=== PATIENT | female | born 1995 | race Caucasian/White ===

== ENCOUNTER 2016-07-21 17:09 | Outpatient (CLI) | payer OTHER | END 2016-07-21 17:25 | disposition home or self-care (01) | LOC: FBPOP 17:09 | PROVIDERS: ATTEND Obstetrics & Gynecology | DX: O26.92 Pregnancy related conditions, unspecified, second trimester (principal); Z3A.22 22 weeks gestation of pregnancy; R11.2 Nausea with vomiting, unspecified | CPT/HCPCS: 99213 ==

== ENCOUNTER → 2016-09-01 | Outpatient (CLI) | payer OTHER ==
[2016-09-01 14:01] LABS: CH 30.5; CHCM 33.9; HCT 33.1 % (34.0-46.0); HDW 3.22; HGB 11.2 gm/dL (11.4-16.0); MCH 30.7 pg (25.0-35.0); MCV 90.4 fL (80.0-100.0); Mean Platelet Volume 7.2; RBC 3.66 m/uL (3.80-5.40); RDW 13.3 % (11.5-15.5); WBC 14.7 k/uL (3.8-10.6)
== END | disposition home or self-care (01) ==
LOC: LABWHC1 12:44
PROVIDERS: ATTEND Obstetrics & Gynecology
DX: Z34.82 Encounter for supervision of other normal pregnancy, second trimester (principal); Z3A.00 Weeks of gestation of pregnancy not specified
CPT/HCPCS: 36415; 82950; 85027

== ENCOUNTER → 2016-09-22 | Outpatient (CLI) | payer OTHER | END | disposition home or self-care (01) | LOC: LABWHC1 11:23 | PROVIDERS: ATTEND Obstetrics & Gynecology | DX: O26.90 Pregnancy related conditions, unspecified, unspecified trimester (principal); Z3A.00 Weeks of gestation of pregnancy not specified | CPT/HCPCS: 86850 ==

== ENCOUNTER → 2016-09-25 | Outpatient (CLI) | payer OTHER ==
--- NOTE | 2016-09-25 19:01 | US ---
EXAMINATION TYPE: US OB anatomy transabd DATE OF EXAM: 09/25/2016 3:38 PM COMPARISON: US on PACS HISTORY: LGA; TECHNIQUE: Transabdominal (TA) EXAM MEASUREMENTS: GESTATIONAL AGE / DATING Physician Established: (32 weeks/2 days) EDC: 11/18/2016 Dates by LMP: (32 weeks/2 days) EDC: 11/18/2016 Dates by First Scan: (32 weeks/2 days) EDC: 11/18/2016 Dates by Current Scan for: (32 weeks/4 days) EDC: 11/16/2016 SURVEY IUP: Single PLACENTA: Anterior PREVIA: No previa STEPHAN: 17.1 cm Normal CERVICAL LENGTH (transabdominal: norm > 3.0cm): 3.02 cm BIOMETRY PRESENTATION: Vertex LIE: Longitudinal BPD: 7.8 cm 31 weeks / 3 days HC: 29.7 cm 33 weeks / 0 days AC: 28.1 cm 33 weeks / 4 days FL: 6.5 cm 33 weeks / 4 days ESTIMATED WEIGHT IN GRAMS: 1999.0 grams ESTIMATED WEIGHT IN LBS/OZ: 4 lbs. 7 oz. WEIGHT PERCENTAGE BASED ON ESTABLISHED DATE: 48 % HC/AC: 1.06 (normal range 0.96 to 1.17) FL/AC: 23% (normal range 20 to 24%) HEART RATE: 136 bpm RHYTHM: Normal ANATOMY SEEN (within normal limits): Four Chamber Heart Outflow tracts: LVOT Stomach Situs Nose / Lips Diaphragm Kidneys (bilateral) Bladder Cord Insert Three Vessel Cord Longitudinal Spine Transverse Spine ANATOMY NOT SEEN: due to advanced gestation and crowding: * Lateral Vent (< 1 cm) cm * Cisterna Magna (< 1.1 cm) cm * Nuchal Fold (< 0.6 cm) cm * Cerebellum (varies with age) cm Choroid Plexus (bilateral) Midline Falx Cavus Septi Pellucidi RVOT Arms (bilateral) Legs (bilateral) IMPRESSION: 1. Single, live, IUP,32 weeks/4 days, EDC: 11/16/2016, HR 136bpm; Cervix length at 3.02cm. 2. Limited assessment of anatomy due to advanced gestational age.
== END | disposition home or self-care (01) ==
LOC: RADUSWWP 14:35
PROVIDERS: ATTEND Obstetrics & Gynecology
DX: O36.63X0 Maternal care for excessive fetal growth, third trimester, not applicable or unspecified (principal); Z3A.32 32 weeks gestation of pregnancy
CPT/HCPCS: 76811

== ENCOUNTER 2016-11-11 06:00 | Inpatient (IN) | payer OTHER ==
[2016-11-11] MEDS ORDERED: TERBUTALINE 1 MG/ML VIAL SQ PRN (08:08)
[2016-11-11] MEDS ORDERED: LIDOCAINE 1% (PF) 10 MG/ML (30 ML SDV) SQ PRN (08:08)
[2016-11-11] MEDS ORDERED: OXYTOCIN 10 UNIT/ML 1 ML VIAL IM PRN (08:08)
[2016-11-11] MEDS ORDERED: METHYLERGONOVINE 0.2 MG/ML 1 ML AMP IM PRN (08:08)
[2016-11-11] MEDS ORDERED: CARBOPROST TROMETHAMINE 250 MCG/ML 1 ML AMP IM PRN (08:08)
[2016-11-11] MEDS ORDERED: OXYTOCIN 30 UNITS/500 ML NS 30 UNIT in SALINE 1 500ML.BAG IV SCH (08:15)
[2016-11-11] MEDS ORDERED: AMPICILLIN 2,000 MG in SODIUM CHLORIDE 0.9% 100 ML IVPB STA (08:15)
[2016-11-11 08:22] LABS: Basophils % (A) 0 %; CH 27.4; CHCM 33.1; Eosinophils # (A) 0.1 k/uL (0-0.7); Eosinophils % (A) 1 %; HCT 31.9 % (34.0-46.0); HDW 3.55; HGB 10.7 gm/dL (11.4-16.0); Hypochromasia Slight; Luc # (Auto) 0.27; Luc % (Auto) 2; Lymphocytes # (A) 2.5 k/uL (1.0-4.8); Lymphocytes % (A) 21 %; MCHC 33.7 g/dL (31.0-37.0); MCV 83.2 fL (80.0-100.0); Mean Platelet Volume 7.8; Monocytes # (A) 0.8 k/uL (0-1.0); Monocytes % (A) 7 %; Neutrophils # (A) 8.5 k/uL (1.3-7.7); Neutrophils % (A) 69 %; Poikilocytosis Slight; RBC 3.83 m/uL (3.80-5.40); RDW 13.9 % (11.5-15.5); WBC 12.2 k/uL (3.8-10.6); WBC (Perox) 11.77
[2016-11-11 08:23] VITALS: BMI 26.4
[2016-11-11] MEDS: LACTATED RINGERS 1,000 ML IV SCH ×3 (08:27→12:46)
[2016-11-11] MEDS ORDERED: fentaNYL (PF) 50 MCG/ML 5 ML AMP ONE (11:08)
[2016-11-11] MEDS ORDERED: BUPIVACAINE (PF) 0.25% 30 ML VIAL ONE (11:08)
[2016-11-11] MEDS ORDERED: SODIUM CHLORIDE 0.9% 100 ML BAG ONE (11:08)
[2016-11-11] MEDS ORDERED: AMPICILLIN 1,000 MG in SODIUM CHLORIDE 0.9% 50 ML IVPB SCH (12:15)
[2016-11-11] MEDS ORDERED: BUPIVACAINE (PF) 0.25% 25 ML, fentaNYL (PF) 200 MCG in SODIUM CHLORIDE 0.9% 71 ML EPIDURAL ONE (13:54)
[2016-11-11] MEDS ORDERED: diphenhydrAMINE 50 MG CAP PO PRN (16:21)
[2016-11-11] MEDS ORDERED: ZOLPIDEM 5 MG TAB PO PRN (16:21)
[2016-11-11] MEDS ORDERED: Acetaminophen-Codeine 300-30mg TAB PO PRN ×2 (16:21)
[2016-11-11] MEDS ORDERED: HYDROCORTISONE 2.5% RECTAL CREAM 30 GM TUBE RECTAL PRN (16:21)
[2016-11-11] MEDS ORDERED: WITCH HAZEL 1 EACH MED..PAD TOPICAL PRN (16:21)
[2016-11-11] MEDS ORDERED: diphenhydrAMINE 50 MG/ML 1 ML VIAL IVP PRN ×2 (16:21)
[2016-11-11] MEDS ORDERED: SIMETHICONE 80 MG CHEWABLE PO PRN (16:21)
[2016-11-11] MEDS ORDERED: diphenhydrAMINE 25 MG CAP PO PRN (16:21)
[2016-11-11] MEDS ORDERED: BENZOCAINE/MENTHOL SPRAY 1 GM/SPRAY AEROSOL TOPICAL PRN (16:21)
[2016-11-11] MEDS ORDERED: LANOLIN CREAM 5 GM TUBE TOPICAL PRN (16:21)
--- NOTE | 2016-11-11 16:24 | P.HPOB ---
History of Present Illness H&P Date: 11/11/16 Chief Complaint: IUP term Patient is a 21-year-old at 39 weeks gestation arise for induction of labor. Her course has been remarkable for positive GBS status otherwise no significant problems were encountered during the . Pertinent labs did include A- blood type Rh antibody was positive for anxiety but that was resolved [place] and. She did receive Fabio gamma 28 weeks. Rubella was immune hepatitis B surface antigen and RPR were both negative. On physical exam vital signs are stable and afebrile. Heart regular, lungs clear, extremities without pain. Patient was dilated to 2 cm artificial rupture membranes was performed this morning with clear fluid noted. Pitocin augmentation of labor is expected as is an epidural for analgesia. Assessment intrauterine term. Plan expect spontaneous vaginal delivery. Past Medical History Past Medical History: Asthma, GERD/Reflux Additional Past Medical History / Comment(s): vertigo History of Any Multi-Drug Resistant Organisms: None Reported Past Surgical History: No Surgical Hx Reported Additional Past Surgical History / Comment(s): 07-27-2014 had scope done with dr an with inflammation Past Anesthesia/Blood Transfusion Reactions: Motion Sickness Past Psychological History: Anxiety, Depression Smoking Status: Current some day smoker Past Alcohol Use History: None Reported Additional Past Alcohol Use History / Comment(s): STARTED SMOKING MAR 2014 Past Drug Use History: None Reported Additional Drug Use History / Comment(s): MOM STATES USES DAILY. INSTRUCTED MOTHER THAT PT NEEDS TO REFRAIN FROM USE AT LEAST 24 HOURS PRIOR TO PROCEDURE - Past Family History Mother Family Medical History: Asthma, COPD Additional Family Medical History / Comment(s): insomnia, hypoglycemia, severe xdiwoyyci-vbee-diecyk Sister(s) Additional Family Medical History / Comment(s): hypoglycemia Medications and Allergies Home Medications Medication Instructions Recorded Confirmed Type Pnv #78/Iron Asp Gly/FA#1/Dha 1 each PO DAILY 11/11/16 11/11/16 History [Prenate Dha Softgel] Allergies Allergy/AdvReac Type Severity Reaction Status Date / Time venom-honey bee Allergy Anaphylaxis Verified 11/11/16 08:07 [bee venom (honey bee)] codeine AdvReac Nausea & Verified 11/11/16 08:07 Vomiting Exam Osteopathic Statement: *. No significant issues noted on an osteopathic structural exam other than those noted in the History and Physical/Consult. - Vital Signs Vital signs: Vital Signs Temp Pulse Resp BP Pulse Ox 11/11/16 07:44 97.3 F L 83 17 123/70 99 Intake and Output 11/11/16 11/11/16 11/11/16 06:59 14:59 22:59 Intake Total 200 Output Total 300 Balance -100 Intake: Oral 200 Output: Urine 300 Other: Weight 61.235 kg Patient Weight 11/12/16 06:59 Weight 61.235 kg Results Result Diagrams: 11/11/16 08:00 Abnormal Lab Results - Last 24 Hours (Table) 11/11/16 Range/Units 08:00 WBC 12.2 H (3.8-10.6) k/uL Hgb 10.7 L (11.4-16.0) gm/dL Hct 31.9 L (34.0-46.0) % Neutrophils # 8.5 H (1.3-7.7) k/uL
--- NOTE | 2016-11-11 16:25 | P.PROBDLV ---
Vaginal Delivery Note - . Vaginal Delivery Note: Patient progressed complete and pushing with spontaneous vaginal delivery of a viable female over an intact perineum. Falling deliver the head anterior posterior shoulders were delivered with gentle downward and upward traction followed by the remainder the baby. Mouth and nares were then bulb suctioned and baby was placed on mother's abdomen where the umbilical cord was clamped cut usual fashion. Placenta was then delivered intact Pitocin was added to the IV. scores weight are pending but both mother and baby currently appear stable.
[2016-11-11] MEDS: ACETAMINOPHEN TAB 325 MG TAB PO PRN (16:32)
[2016-11-11] MEDS: IBUPROFEN 600 MG TAB PO PRN (21:12)
[2016-11-11] MEDS: SENNOSIDES-DOCUSATE SODIUM 1 EACH TAB PO SCH (22:57)
[2016-11-12] MEDS: IBUPROFEN 600 MG TAB PO PRN ×2 (08:22→20:50)
[2016-11-12] MEDS: SENNOSIDES-DOCUSATE SODIUM 1 EACH TAB PO SCH ×2 (08:23→20:50)
--- NOTE | 2016-11-12 10:34 | P.PNOBGVD ---
Subjective - Subjective Principal diagnosis: day 1 Interval history: Anabella is seen and evaluated day 1. She is sitting in a chair and at this time voices no complaints. She is ambulating, voiding and she is tolerating her diet well. She does report that last night she had some chest pain with deep breaths this has resolved and they believe this may been anxiety as an etiology. Should she have further or return of symptoms, will need to have more workup done including EKG and potentially VQ scan versus CT. However her lungs are clear she is pulse oxing well she is not have any pain with deep inspiration this time and realistically it was not bad enough that they even called me to notify me of this last night. I suspect it is some anxiety issues a very anxious person in general. Heart regular, lungs clear, extremities without pain. Abdomen is soft uterus is firm and lochia is reported to be light. Assessment post day 1. Plan continue current care. Patient reports: Reports appetite normal, Reports voiding normally, Reports pain well controlled, Reports ambulating normally [place]: doing well Objective - Latest Vital Signs Latest vital signs: Vital Signs Temp Pulse Resp BP Pulse Ox 11/12/16 08:00 97.7 F 72 18 109/67 11/12/16 01:00 98.1 F 75 16 113/59 11/11/16 22:00 99.0 F 79 16 105/54 11/11/16 17:47 80 17 95/52 11/11/16 17:17 98.2 F 78 18 101/56 11/11/16 16:47 78 16 110/59 11/11/16 16:32 78 17 109/56 11/11/16 16:17 85 17 105/75 11/11/16 16:02 85 16 108/56 11/11/16 15:47 98.2 F 86 18 103/50 96 Intake and Output 11/11/16 11/12/16 11/12/16 22:59 06:59 14:59 Intake Total 107.25 Output Total 500 Balance -392.75 Intake: Intake, IV Titration 107.25 Amount Oxytocin 30 Units/500 ml 107.25 Ns 30 unit In Saline 1 500ml.bag @ 1 MILLIUNIT/ MIN 1 mls/hr IV .Q24H SHABANA Rx#:[id number] Output: Urine 500 Other: # Voids 1 1 1
[2016-11-12] MEDS: ACETAMINOPHEN TAB 325 MG TAB PO PRN (13:57)
[2016-11-13] MEDS: ACETAMINOPHEN TAB 325 MG TAB PO PRN (00:50)
[2016-11-13] MEDS: IBUPROFEN 600 MG TAB PO PRN (08:51)
--- NOTE | 2016-11-13 09:09 | P.DS ---
Providers Date of admission: 11/11/16 07:36 Expected date of discharge: 11/13/16 Attending physician: Mekhi Gamboa Primary care physician: Stated None Hospital Course: Overall leashes doing very well day 2. She is ambulating, voiding, and she is tolerating her diet. Chest pain she is complaining of yesterday is completely resolved. She does have some back pain but this is likely due to her epidural. She is stable for discharge this time stable vital signs. Prescription for Motrin has been provided as she cannot take Tylenol No. 3. All other questions are answered for her prior to discharge. On physical exam again vital signs are stable. She is afebrile. Heart regular, lungs clear, extremities without pain. Abdomen is soft uterus is firm below the umbilicus and lochia is reported be light. Assessment day 2. Plan discharged home follow up with me in 6 weeks. Patient Condition at Discharge: Good Plan - Discharge Summary New Discharge Prescriptions: Ibuprofen [Motrin] 600 mg PO Q6HR PRN #30 tab PRN Reason: Pain Discharge Medication List Pnv #78/Iron Asp Gly/FA#1/Dha [Prenate Dha Softgel] 1 each PO DAILY 11/11/16 [ History] Ibuprofen [Motrin] 600 mg PO Q6HR PRN #30 tab 11/13/16 [Rx] Follow up Appointment(s)/Referral(s): Mekhi Gamboa DO [Doctor of Osteopathic Medicine] - 6 Weeks Activity/Diet/Wound Care/Special Instructions: No heavy lifting, limit stairs and driving and pelvic rest. If any high temperatures, heavy bleeding, or severe pain call my office Discharge Disposition: HOME SELF-CARE
[2016-11-13 09:32] VITALS: BP 116/62; PULSE 68; RESP 20; TEMP 98.5
[2016-11-13] MEDS: SENNOSIDES-DOCUSATE SODIUM 1 EACH TAB PO SCH (09:34)
== END 2016-11-13 13:30 | disposition home or self-care (01) | DRG 775 ==
LOC: 4FBP 07:36
PROVIDERS: ADMIT Obstetrics & Gynecology; ATTEND Obstetrics & Gynecology
PROC: 10E0XZZ Delivery of Products of Conception, External Approach (ICD-10-PCS; principal; 2016-11-11)
PROC: 00HU33Z Insertion of Infusion Device into Spinal Canal, Percutaneous Approach (ICD-10-PCS; 2016-11-11)
PROC: 3E0R3CZ (ICD-10-PCS; 2016-11-11)
DX: O99.824 Streptococcus B carrier state complicating childbirth (principal); O99.344 Other mental disorders complicating childbirth; F32.9 Major depressive disorder, single episode, unspecified; Z37.0 Single live birth; F17.200 Nicotine dependence, unspecified, uncomplicated; O99.334 Smoking (tobacco) complicating childbirth; O99.52 Diseases of the respiratory system complicating childbirth; O99.62 Diseases of the digestive system complicating childbirth; F41.9 Anxiety disorder, unspecified; J45.909 Unspecified asthma, uncomplicated; K21.9 Gastro-esophageal reflux disease without esophagitis; O75.89 Other specified complications of labor and delivery; R07.9 Chest pain, unspecified; Z3A.39 39 weeks gestation of pregnancy
CPT/HCPCS: 85025; 88307

== ENCOUNTER → 2018-09-09 | Outpatient (CLI) | payer OTHER ==
[2018-09-09 09:30] LABS: HCT 39.8 % (34.0-46.0); HGB 13.3 gm/dL (11.4-16.0); MCH 30.3 pg (25.0-35.0); MCHC 33.4 g/dL (31.0-37.0); MCV 90.7 fL (80.0-100.0); Mean Platelet Volume 6.7; Platelet Count 266 k/uL (150-450); RBC 4.38 m/uL (3.80-5.40); RDW 13.2 % (11.5-15.5)
[2018-09-09 09:32] LABS: Glucose 83 mg/dL (74-99)
--- NOTE | 2018-09-09 16:00 | US ---
EXAMINATION TYPE: Transabdominal DATE OF EXAM: 09/09/2018 8:34 AM COMPARISON: NONE CLINICAL HISTORY: Z36 confirm dates. EXAM PERFORMED: Transabdominal (TA) EXAM MEASUREMENTS: GESTATIONAL AGE / DATING Physician Established: Not yet established Dates by LMP: Patient is unsure of LMP Dates by First Scan: No previous this is first scan Dates by Current Scan for: (11 weeks/0 days) EDC: 03/31/2019 MATERNAL ANATOMY Uterus: 11.7 x 6.5 x 6.8 cm Right Ovary: 2.1 x 1.0 x 2.1 cm Left Ovary: 3.2 x 1.9 x 2.8 cm Post CDS / Adnexa: wnl Presence of free fluid: No Presence of corpus luteal cyst: No Presence of subchorionic bleed: No GESTATION / SURVEY CRL: 4.1 cm (11 weeks/0 days) Yolk Sac (normal less than 6mm): 3 mm Heart Rate: 174 bpm Rhythm: Normal IUP: Viable IUP Nuchal Translucency 10-14wks (normal less than 3mm): 0.08 cm Date of LMP: LMP Unsure Beta HcG (if available): Not available at this time Viable IUP with an MARGRET of 03/31/2019 by this exam. IMPRESSION: Single intrauterine gestation estimated at 11 weeks 0 days gestation based on crown-rump length. Card iac activity measures 174 bpm.
== END | disposition home or self-care (01) ==
LOC: RADUSWWP 08:22
PROVIDERS: ATTEND Obstetrics & Gynecology
DX: Z36.89 Encounter for other specified antenatal screening (principal); Z34.81 Encounter for supervision of other normal pregnancy, first trimester
CPT/HCPCS: 36415; 76801; 76813; 82565; 82947; 85027; 86762; 86780; 86850; 86900; 86901; 87340

== ENCOUNTER 2018-09-22 02:17 | Emergency (ER) | payer OTHER ==
[2018-09-22 02:27] VITALS: BP 104/59; PULSE 82; RESP 16; TEMP 98.2
--- NOTE | 2018-09-22 02:37 | ED ---
Upper Extremity HPI - General Chief Complaint: Extremity Injury, Upper Stated Complaint: [facility] Hand Injury Time Seen by Provider: 09/22/18 02:32 Source: patient Mode of arrival: ambulatory Limitations: no limitations - History of Present Illness Complaint: Injury to:: left, right, finger Onset/Timin -: hour(s) Other Injuries: none Handedness: right Place: work Improves With: immobilization Worsens With: movement of extremity Context: direct blow Associated Symptoms: denies other symptoms - Related Data Home Medications Medication Instructions Recorded Confirmed 78/Iron/Folate 1/Dha 1 each PO DAILY 11/11/16 11/11/16 [Prenate Dha Softgel] Previous Rx's Medication Instructions Recorded Ibuprofen [Motrin] 600 mg PO Q6HR PRN #30 tab 11/13/16 Allergies Allergy/AdvReac Type Severity Reaction Status Date / Time venom-honey bee Allergy Anaphylaxis Verified 08/11/17 16:09 [bee venom (honey bee)] codeine AdvReac Nausea & Verified 08/11/17 16:09 Vomiting Review of Systems ROS Statement: Those systems with pertinent positive or pertinent negative responses have been documented in the HPI. ROS Other: All systems not noted in ROS Statement are negative. Constitutional: Denies: weakness Musculoskeletal: Reports: arthralgia Skin: Denies: lesions Neurological: Denies: weakness, numbness, paresthesias Past Medical History Past Medical History: Asthma, GERD/Reflux Additional Past Medical History / Comment(s): vertigo History of Any Multi-Drug Resistant Organisms: None Reported Past Surgical History: No Surgical Hx Reported Additional Past Surgical History / Comment(s): 07-27-2014 had scope done with dr an with inflammation Past Anesthesia/Blood Transfusion Reactions: Motion Sickness Past Psychological History: Anxiety, Depression Smoking Status: Current every day smoker Past Alcohol Use History: Occasional Past Drug Use History: None Reported - Past Family History Mother Family Medical History: Asthma, COPD Additional Family Medical History / Comment(s): insomnia, hypoglycemia, severe [id number]-llewnf Sister(s) Additional Family Medical History / Comment(s): hypoglycemia General Exam Limitations: no limitations General appearance: alert, in no apparent distress Cardiovascular Exam: Present: other (Pulses to the hands are normal. Capillary refill normal) Neurological exam: Present: alert. Absent: motor sensory deficit Skin exam: Present: warm, dry, intact, normal color. Absent: rash Course Vital Signs 09/22/18 02:21 Temperature 98.2 F Pulse Rate 82 Respiratory 16 Rate Blood Pressure 104/59 O2 Sat by Pulse 100 Oximetry Disposition Clinical Impression: Hand injury Disposition: HOME SELF-CARE Condition: Good Instructions (If sedation given, give patient instructions): Hand Sprain (ED) Is patient prescribed a controlled substance at d/c from ED?: No Referrals: None,Stated [Primary Care Provider] - 1-2 days
--- NOTE | 2018-09-22 06:07 | XR ---
EXAM: XR Left Hand Complete, 3 or More Views XR Right Hand Complete, 3 or More Views CLINICAL HISTORY: Pain TECHNIQUE: Frontal, lateral and oblique views of the bilateral hands. COMPARISON: No relevant prior studies available. FINDINGS: Bones/joints: Unremarkable. No acute fracture. No dislocation. Soft tissues: Unremarkable. No radiopaque foreign body. IMPRESSION: Normal bilateral hand x-rays.
== END 2018-09-22 03:30 | disposition home or self-care (01) ==
LOC: EC 02:17
DX: S69.92XA Unspecified injury of left wrist, hand and finger(s), initial encounter (principal); F17.200 Nicotine dependence, unspecified, uncomplicated; Z88.5 Allergy status to narcotic agent; Z91.030 Bee allergy status; W22.8XXA Striking against or struck by other objects, initial encounter; Y92.69 Other specified industrial and construction area as the place of occurrence of the external cause; Y99.0 Civilian activity done for income or pay
CPT/HCPCS: 99283

== ENCOUNTER 2018-09-30 03:13 | Emergency (ER) | payer OTHER ==
[2018-09-30 03:56] LABS: Basophils % (A) 0 %; Eosinophils # (A) 0.1 k/uL (0-0.7); Eosinophils % (A) 1 %; HCT 35.3 % (34.0-46.0); HGB 12.3 gm/dL (11.4-16.0); Lymphocytes % (A) 17 %; MCH 30.9 pg (25.0-35.0); MCHC 34.9 g/dL (31.0-37.0); MCV 88.8 fL (80.0-100.0); Mean Platelet Volume 6.3; Monocytes # (A) 0.5 k/uL (0-1.0); Monocytes % (A) 4 %; Neutrophils # (A) 9.2 k/uL (1.3-7.7); Neutrophils % (A) 77 %; Platelet Count 217 k/uL (150-450); RBC 3.97 m/uL (3.80-5.40); RDW 13.1 % (11.5-15.5); WBC 11.8 k/uL (3.8-10.6)
[2018-09-30 04:06] LABS: ALT 17 U/L (9-52); AST 15 U/L (14-36); Albumin 3.4 g/dL (3.5-5.0); Alkaline Phosphatase 44 U/L (38-126); Anion Gap 7 mmol/L; Blood Urea Nitrogen 8 mg/dL (7-17); Calcium 9.3 mg/dL (8.4-10.2); Carbon Dioxide 25 mmol/L (22-30); Chloride 104 mmol/L (98-107); Glucose 88 mg/dL (74-99); Potassium 3.7 mmol/L (3.5-5.1); Sodium 136 mmol/L (137-145); Total Bilirubin 0.8 mg/dL (0.2-1.3); Total Protein 6.1 g/dL (6.3-8.2)
[2018-09-30] MEDS: PANTOPRAZOLE 40 MG/10 ML VIAL IVP STA (04:07)
[2018-09-30] MEDS: SODIUM CHLORIDE 0.9% 1,000 ML IV ONE (04:07)
--- NOTE | 2018-09-30 04:28 | ED ---
Nausea/Vomiting/Diarrhea HPI - General Chief complaint: Nausea/Vomiting/Diarrhea Stated complaint: Vomiting 14 weeks Preg Time Seen by Provider: 09/30/18 03:36 Source: patient Mode of arrival: ambulatory Limitations: no limitations - History of Present Illness Initial comments: Anabella is a 23-year-old female currently 14 weeks who presents the e mergency department for persistent nausea, vomiting and noticing some coffee- ground emesis. 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 Brooks who was recently prescribed her Zofran for her persistent nausea. Patient reports that despite this over the past week she feels that she is to keep down much fluids. Patient valuate earlier in the day and outside facility and advised that she likely has irritation from vomiting and she needs to follow up with gastroenterology. At that time patient did not feel that she had a thorough evaluation so she came to our ER for reevaluation. At the time of evaluation patient reports mild nausea she's not had any vomiting. [place] any complaints. - Related Data Home Medications Medication Instructions Recorded Confirmed 78/Iron/Folate 1/Dha 1 each PO DAILY 11/11/16 11/11/16 [Prenate Dha Softgel] Previous Rx's Medication Instructions Recorded Ibuprofen [Motrin] 600 mg PO Q6HR PRN #30 tab 11/13/16 Famotidine [Pepcid] 20 mg PO DAILY #30 tablet 09/30/18 Sucralfate [Carafate] 1 gm PO ACHS #1 bottle 09/30/18 Allergies Allergy/AdvReac Type Severity Reaction Status Date / Time venom-honey bee Allergy Anaphylaxis Verified 09/30/18 03:19 [bee venom (honey bee)] codeine AdvReac Nausea & Verified 09/30/18 03:19 Vomiting Review of Systems ROS Statement: Those systems with pertinent positive or pertinent negative responses have been documented in the HPI. ROS Other: All systems not noted in ROS Statement are negative. Past Medical History Past Medical History: Asthma, GERD/Reflux Additional Past Medical History / Comment(s): vertigo History of Any Multi-Drug Resistant Organisms: None Reported Past Surgical History: No Surgical Hx Reported Additional Past Surgical History / Comment(s): 07-27-2014 had scope done with dr an with inflammation Past Anesthesia/Blood Transfusion Reactions: Motion Sickness Past Psychological History: Anxiety, Depression Smoking Status: Current every day smoker Past Alcohol Use History: Occasional Past Drug Use History: None Reported - Past Family History Mother Family Medical History: Asthma, COPD Additional Family Medical History / Comment(s): insomnia, hypoglycemia, severe [id number]-chyceu Sister(s) Additional Family Medical History / Comment(s): hypoglycemia General Exam - General Exam Comments Initial Comments: Physical Exam GENERAL: Patient is well-developed and well-nourished. Patient appears mildly dehydrated and uncomfortable HENT: Normocephalic, Atraumatic. EYES: PERRL, EOMI PULMONARY: Unlabored respirations. No audible rales rhonchi or wheezing was noted. CARDIOVASCULAR: There is a regular rate and rhythm without any murmurs gallops or rubs. ABDOMEN: Soft and nontender with normal bowel sounds. SKIN: Skin is clear with no lesions or rashes and otherwise unremarkable. : Deferred NEUROLOGIC: Patient is alert and oriented x3. Moving all extremities spontaneously MUSCULOSKELETAL: Normal extremities with adequate strength and full range of motion. No lower extremity swelling or edema. No calf tenderness. PSYCHIATRIC: Normal psychiatric evaluation. Limitations: no limitations Limitations: no limitations Course Vital Signs 09/30/18 09/30/18 03:16 05:33 Temperature 99 F 97.7 F Pulse Rate 82 78 Respiratory 16 18 Rate Blood Pressure 103/54 133/73 O2 Sat by Pulse 100 98 Oximetry Medical Decision Making - Medical Decision Making The patient was seen and evaluated history is obtained from the patient Basic labs were ordered IVF ordered Lab unremarkable Hgb stable Patient fluid resuscitated I suspect the patient's symptoms are secondary to hyperemesis due to the and that her minimal blood in her vomitus is secondary to gastric ir ritation. Pepcid and Carafate will be prescribed. Both of these are determined to be safe in . All questions pertaining care were answered best my ability return parameters were discussed and the patient was discharged home in stable condition with a plan to follow up with gastroenterology as planned and spool fixer for further management of hyperemesis. - Lab Data Result diagrams: 09/30/18 02:44 09/30/18 02:44 Lab Results 09/30/18 09/30/18 Range/Units 02:44 02:44 WBC 11.8 H (3.8-10.6) k/uL RBC 3.97 (3.80-5.40) m/uL Hgb 12.3 (11.4-16.0) gm/dL Hct 35.3 (34.0-46.0) % MCV 88.8 (80.0-100.0) fL MCH 30.9 (25.0-35.0) pg MCHC 34.9 (31.0-37.0) g/dL RDW 13.1 (11.5-15.5) % Plt Count 217 (150-450) k/uL Neutrophils % 77 % Lymphocytes % 17 % Monocytes % 4 % Eosinophils % 1 % Basophils % 0 % Neutrophils # 9.2 H (1.3-7.7) k/uL Lymphocytes # 2.0 (1.0-4.8) k/uL Monocytes # 0.5 (0-1.0) k/uL Eosinophils # 0.1 (0-0.7) k/uL Basophils # 0.0 (0-0.2) k/uL Sodium 136 L (137-145) mmol/L Potassium 3.7 (3.5-5.1) mmol/L Chloride 104 (98-107) mmol/L Carbon Dioxide 25 (22-30) mmol/L Anion Gap 7 mmol/L BUN 8 (7-17) mg/dL Creatinine 0.48 L (0.52-1.04) mg/dL Est GFR (CKD-EPI)AfAm >90 (>60 ml/min/1.73 sqM) Est GFR (CKD-EPI)NonAf >90 (>60 ml/min/1.73 sqM) Glucose 88 (74-99) mg/dL Calcium 9.3 (8.4-10.2) mg/dL Total Bilirubin 0.8 (0.2-1.3) mg/dL AST 15 (14-36) U/L ALT 17 (9-52) U/L Alkaline Phosphatase 44 (38-126) U/L Total Protein 6.1 L (6.3-8.2) g/dL Albumin 3.4 L (3.5-5.0) g/dL Disposition Clinical Impression: Hyperemesis gravidarum Disposition: HOME SELF-CARE Instructions (If sedation given, give patient instructions): Acute Nausea and Vomiting (ED) Prescriptions: Sucralfate [Carafate] 1 gm PO ACHS #1 bottle Famotidine [Pepcid] 20 mg PO DAILY #30 tablet Is patient prescribed a controlled substance at d/c from ED?: No Referrals: None,Stated [Primary Care Provider] - 1-2 days
[2018-09-30 05:34] VITALS: BP 133/73; PULSE 78; RESP 18; TEMP 97.7
== END 2018-09-30 05:34 | disposition home or self-care (01) ==
LOC: EC 03:13
DX: O21.0 Mild hyperemesis gravidarum (principal); O99.332 Smoking (tobacco) complicating pregnancy, second trimester; F17.200 Nicotine dependence, unspecified, uncomplicated; Z3A.14 14 weeks gestation of pregnancy; Z88.5 Allergy status to narcotic agent; Z91.030 Bee allergy status
CPT/HCPCS: 36415; 80053; 85025; 99284; 96374; 96361; C9113

== ENCOUNTER → 2018-10-19 | Outpatient (CLI) | payer OTHER ==
--- NOTE | 2018-10-19 12:09 | US ---
EXAMINATION TYPE: US gallbladder DATE OF EXAM: 10/19/2018 COMPARISON: US 12/20/2014 CLINICAL HISTORY: O21.0 MILD HYPEREMESIS GRAVIDARUM. EXAM MEASUREMENTS: Liver Length: 15.5 cm Gallbladder Wall: 0.2 cm CBD: 0.3 cm Right Kidney: 10.4 x 4.1 x 4.4 cm Pancreas: Tail obscured by overlying bowel gas, visualized portions wnl Liver: wnl Gallbladder: wnl Evidence for sonographic Jaramillo's sign: No CBD: wnl Right Kidney: No hydronephrosis or masses seen IMPRESSION: No acute process.
== END | disposition home or self-care (01) ==
LOC: RADUSWWP 10:47
DX: O21.0 Mild hyperemesis gravidarum (principal); Z3A.00 Weeks of gestation of pregnancy not specified
CPT/HCPCS: 76705

== ENCOUNTER → 2018-12-28 | Outpatient (CLI) | payer OTHER ==
[2018-12-28 11:07] LABS: HCT 35.3 % (34.0-46.0); MCH 31.2 pg (25.0-35.0); MCV 91.8 fL (80.0-100.0); Mean Platelet Volume 7.3; Platelet Count 205 k/uL (150-450); RBC 3.84 m/uL (3.80-5.40); RDW 15.2 % (11.5-15.5); WBC 15.3 k/uL (3.8-10.6)
== END | disposition home or self-care (01) ==
LOC: LABWHC1 09:37
PROVIDERS: ATTEND Obstetrics & Gynecology
DX: Z34.82 Encounter for supervision of other normal pregnancy, second trimester (principal)
CPT/HCPCS: 36415; 82950; 85027; 86850

== ENCOUNTER 2019-01-08 16:01 | Outpatient (CLI) | payer OTHER ==
[2019-01-08 16:46] VITALS: BP 114/55; PULSE 95; RESP 16; TEMP 99.1
--- NOTE | 2019-01-09 06:49 | P.MSEPDOC ---
Presenting Problems - Arrival Data Date of Arrival on Unit: 01/08/19 Time of Arrival on Unit: 16:01 Mode of Transport: Ambulatory - Complaint OB-Reason for Admission/Chief Complaint: Possible Onset of Labor, Other Comment: sore throat and sinus congestion Medical History - Information : 4 Para: 2 Term: 2 : 0 Abortions: Spontaneous or Elective: 1 Number of Living Children: 2 - Gestational Age Gestational Age by MARGRET (wks/days): 28 Weeks and 2 Days Review of Systems - Review of Systems Constitutional: No problems Breast: No problems ENT: No problems Cardiovascular: No problems Respiratory: No problems Gastrointestinal: No problems Genitourinary: No problems Musculoskeletal: No problems Neurological: No problems Skin: No problems Vital Signs - Temperature Temperature: 99.1 F Temperature Source: Oral - Pulse Right Brachial Pulse Rate: 95 Pulse Assessment Method: Automatic Cuff - Respirations Respiratory Rate: 16 Oxygen Delivery Method: Room Air O2 Sat by Pulse Oximetry: 96 - Blood Pressure Right Arm Blood Pressure: 114/55 Blood Pressure Mean: 74 Blood Pressure Source: Automatic Cuff Medical Screen Scoring (Pre) - Cervical Exam Dilation: 0 cm = 0 Membranes: Intact - Uterine Contractions Frequency: N/A Duration: N/A Intensity: N/A - Maternal Vital Signs Maternal Temperature: N/A Maternal Blood Pressure: N/A Signs of Preeclampsia: N/A Maternal Respirations: N/A - Maternal Trauma Maternal Trauma: N/A - Assessment - Baby A Baseline FHR: 140 Heart Rate - NICHD Category: Category I (Normal) = 0 NST: Reactive Position: N/A Station: N/A - Total Score - Baby A Total Score - Baby A: 0 - Total Score - Baby B Total Score - Baby B: 0 - Total Score - Baby C Total Score - Baby C: 0 - Level of Risk - Baby A Level of Risk - Baby A: Low (0-5) - Level of Risk - Baby B Level of Risk - Baby B: Low (0-5) - Level of Risk - Baby C Level of Risk - Baby C: Low (0-5) Physician Notification (Pre) - Physician Notified Physician Notified Date: 01/08/19 Physician Notified Time: 16:34 Physician/Practitioner Notifed:: brooks Spoke With: Brooks New Order Received: Yes - Notification Comment Comment: heck cervix if closed pt may return to ER for treatment Disposition - Disposition OB Disposition: Transfer to other dept./facility, Discharge to home Transferred to:: pt to ER for sore throat and sinus congestion Discharge Date: 01/08/19 Discharge Time: 16:40 I agree with the RN Medical Screening Exam: Yes Risk & Benefit of care provided described in d/c instruction: Yes Diagnosis: FALSE LABOR BEFORE 37 COMPLETED WEEKS OF GEST, THIRD TRI
== END 2019-01-08 16:40 | disposition home or self-care (01) ==
LOC: FBPOP 16:01
PROVIDERS: ATTEND Obstetrics & Gynecology
DX: O47.03 False labor before 37 completed weeks of gestation, third trimester (principal); Z3A.28 28 weeks gestation of pregnancy
CPT/HCPCS: 59025; G0463; 99213

== ENCOUNTER 2019-01-08 16:50 | Emergency (ER) | payer OTHER ==
[2019-01-08 16:55] VITALS: BP 94/58; PULSE 94; RESP 16; TEMP 99
--- NOTE | 2019-01-08 17:12 | ED ---
ENT HPI - General Chief complaint: ENT Stated complaint: Flu symptoms Time Seen by Provider: 01/08/19 16:57 Source: patient Mode of arrival: ambulatory Limitations: no limitations - History of Present Illness Initial comments: 23-year-old female 28 weeks presenting with fever and sore throat that began 2 days prior. She states yesterday her temperature was 102. She is having postnasal drip and a sore throat that worsens with turning her head. She denies any cough, trouble swallowing, or difficulty breathing. She admits to nausea but denies any vomiting or diarrhea. She admits to urinary frequency, but is unsure if it is secondary to her . Patient states she presented to OB who cleared her and sent her down to the emergency department. She denies any headache. - Related Data Home Medications Medication Instructions Recorded Confirmed 78/Iron/Folate 1/Dha 1 each PO DAILY 11/11/16 01/08/19 [Prenate Dha Softgel] Sambucol 1 tab SL Q3H 01/08/19 01/08/19 Previous Rx's Medication Instructions Recorded Famotidine [Pepcid] 20 mg PO DAILY #30 tablet 09/30/18 Allergies Allergy/AdvReac Type Severity Reaction Status Date / Time venom-honey bee Allergy Anaphylaxis Verified 01/08/19 17:04 [bee venom (honey bee)] codeine AdvReac Nausea & Verified 01/08/19 17:04 Vomiting Review of Systems ROS Statement: Those systems with pertinent positive or pertinent negative responses have been documented in the HPI. Review of Systems Constitutional: Positive fever, chills Eyes: Denies change in vision, Denies pain Ears, nose, mouth, throat: Denies headaches, positive sore throat Cardiovascular: Denies chest pain. Denies palpitations Respiratory: Denies shortness of breath, Denies cough Gastrointestinal: Denies abdominal pain. Denies nausea, vomiting, diarrhea. Genitourinary: Denies hematuria, Denies infections Musculoskeletal: Denies pain, Denies swelling Integumentary: Denies rash Neurological: Denies headache, focal weakness, focal numbness Psychiatric: Denies anxiety, Denies depression Hematologic/Lymphatic: Denies easy bleeding or bruising ROS Other: All systems not noted in ROS Statement are negative. Past Medical History Past Medical History: Asthma, GERD/Reflux Additional Past Medical History / Comment(s): vertigo History of Any Multi-Drug Resistant Organisms: None Reported Past Surgical History: No Surgical Hx Reported Additional Past Surgical History / Comment(s): 07-27-2014 had scope done with dr an with inflammation Past Anesthesia/Blood Transfusion Reactions: Motion Sickness Past Psychological History: Anxiety, Depression Smoking Status: Current every day smoker - Past Family History Mother Family Medical History: Asthma, COPD Additional Family Medical History / Comment(s): insomnia, hypoglycemia, severe nlxraayms-nque-zwasbc Sister(s) Additional Family Medical History / Comment(s): hypoglycemia General Exam - General Exam Comments Initial Comments: General: Awake, alert, No acute Distress HENT: Normocephalic. Atraumatic. Normal TMs bilaterally. Post-oropharyngeal erythema without evidence of abscess, purulent discharge, or edema Eyes: PERRL. EOMI. No scleral icterus. No injected conjunctiva Neck: Full ROM. No thyromegaly Chest/Lungs: Clear to auscultation bilaterally. No wheezing, rhonchi, or rales Cardiac: Regular rate, rhythm. No murmurs or rubs Abdomen/GI: Soft, nontender, nondistended. No rebound, guarding, or rigidity. Gravid uterus Musculoskeletal: Full ROM Skin: Warm, dry, intact Neurologic: A/Ox3, no weakness, no sensory deficit, no abnormal gait, no coordination deficit Limitations: no limitations Course Vital Signs 01/08/19 16:51 Temperature 99 F Pulse Rate 94 Respiratory 16 Rate Blood Pressure 94/58 O2 Sat by Pulse 95 Oximetry Medical Decision Making - Medical Decision Making 23-year-old female presenting with sore throat and postnasal drip. Initial exam the patient is awake, alert, no acute distress. VSS. Patient has no evidence of peritonsillar abscess. Patient has anterior throat pain but no LOCK or nuchal rigidity to suggest meningitis. Her strep and her flu were negative. I offered the patient Tylenol for her sore throat but she declined. The patient has no evidence of life threatening bacterial infection. No further emergent workup indicated. The patient was given return to ED instructions. They were instructed to follow up with their primary care provider. Stable for discharge at this time. - Lab Data Lab Results 01/08/19 01/08/19 01/08/19 Range/Units 17:35 17:35 17:35 Urine Color Yellow Urine Appearance Clear (Clear) Urine pH 7.5 (5.0-8.0) Ur Specific [place] 1.017 (1.001-1.035) Urine Protein Trace H (Negative) Urine Glucose (UA) Negative (Negative) Urine Ketones Negative (Negative) Urine Blood Negative (Negative) Urine Nitrite Negative (Negative) Urine Bilirubin Negative (Negative) Urine Urobilinogen <2.0 (<2.0) mg/dL Ur Leukocyte Esterase Trace H (Negative) Urine RBC 2 (0-5) /hpf Urine WBC 3 (0-5) /hpf Ur Squamous Epith Cells 2 (0-4) /hpf Urine Mucus Occasional H (None) /hpf Influenza Type A RNA Not Detected (Not Detectd) Influenza Type B (PCR) Not Detected (Not Detectd) Group A Strep Rapid Negative (Negative) Disposition Clinical Impression: Acute viral pharyngitis Disposition: HOME SELF-CARE Instructions (If sedation given, give patient instructions): Pharyngitis (ED), Sinusitis (ED) Additional Instructions: Follow up with your primary care doctor this week Is patient prescribed a controlled substance at d/c from ED?: No Referrals: None,Stated [Primary Care Provider] - 1-2 days
[2019-01-08 18:11] LABS: Appearance,Urine Clear (Clear); Bilirubin,Urine Negative (Negative); Blood,Urine Negative (Negative); Color,Urine Yellow; Glucose,Urine (UA) Negative (Negative); Ketones,Urine Negative (Negative); Leukocyte Esterase,Urine Trace (Negative); Mucus,Urine Occasional /hpf; Nitrite,Urine Negative (Negative); PH, Urine 7.5 (5.0-8.0); Protein,Urine Trace (Negative); RBC,Urine 2 /hpf (0-5); Specific Gravity,Urine 1.017 (1.001-1.035); Squamous Epithelial Cell,Urine 2 /hpf (0-4); Urobilinogen,Urine <2.0 mg/dL (<2.0); WBC,Urine 3 /hpf (0-5)
== END 2019-01-08 18:42 | disposition home or self-care (01) ==
LOC: EC 16:50
DX: O99.513 Diseases of the respiratory system complicating pregnancy, third trimester (principal); J02.9 Acute pharyngitis, unspecified; O99.333 Smoking (tobacco) complicating pregnancy, third trimester; F17.200 Nicotine dependence, unspecified, uncomplicated; Z53.29 Procedure and treatment not carried out because of patient's decision for other reasons; Z88.5 Allergy status to narcotic agent; Z91.030 Bee allergy status; Z3A.28 28 weeks gestation of pregnancy
CPT/HCPCS: 81001; 87081; 87430; 87502; 99283

== ENCOUNTER → 2019-02-13 | Outpatient (CLI) | payer OTHER ==
[2019-02-13 22:37] LABS: Hemoglobin A1C 4.9 % (4.0-6.0)
== END | disposition home or self-care (01) ==
LOC: LABWHC1 12:45
PROVIDERS: ATTEND Obstetrics & Gynecology Maternal & Fetal Medicine
DX: O24.410 Gestational diabetes mellitus in pregnancy, diet controlled (principal); Z3A.00 Weeks of gestation of pregnancy not specified
CPT/HCPCS: 36415; 82947; 83036

== ENCOUNTER 2019-02-17 13:16 | Outpatient (CLI) | payer OTHER ==
--- NOTE | 2019-02-17 14:45 | US ---
EXAMINATION TYPE: US OB BPP wo non-stress DATE OF EXAM: 02/17/2019 COMPARISON: NONE CLINICAL HISTORY: gestational diabetes. BPP EXAM PERFORMED: Transabdominal (TA) BPP PARAMETERS: PRESENTATION: Vertex HEART RATE: 144 bpm RHYTHM: Normal STEPHAN: 11.6 cm DIAPHRAGM IMAGED: Yes BPP SCORIN. Breathin (1 episode of breathing of 30 second duration in 30 minutes of scanning time) 2. Movement: 2 (at least 3 discrete body movements in 30 minutes) 3. Tone: 2 (1 episode of active flexion/extension of limb) 4. STEPHAN: 2 (STEPHAN index > 5cm) IMPRESSION: TOTAL SCORE: 8 / 8
== END 2019-02-17 14:21 | disposition home or self-care (01) ==
LOC: FBPOP 13:16
PROVIDERS: ATTEND Obstetrics & Gynecology
DX: O24.419 Gestational diabetes mellitus in pregnancy, unspecified control (principal)
CPT/HCPCS: 76819

== ENCOUNTER 2019-02-24 13:16 | Outpatient (CLI) | payer OTHER ==
--- NOTE | 2019-02-24 14:25 | US ---
EXAMINATION TYPE: US OB BPP wo non-stress DATE OF EXAM: 02/24/2019 COMPARISON: 02/17/2019 CLINICAL HISTORY: GDM . EXAM PERFORMED: Transabdominal (TA) BPP PARAMETERS: PRESENTATION: Vertex LIE: Longitudinal?? HEART RATE: 132 bpm RHYTHM: Normal STEPHAN: 10.8 cm DIAPHRAGM IMAGED: Yes BPP SCORIN. Breathin (1 episode of breathing of 30 second duration in 30 minutes of scanning time) 2. Movement: 2 (at least 3 discrete body movements in 30 minutes) 3. Tone: 2 (1 episode of active flexion/extension of limb) 4. STEPHAN: 2 (STEPHAN index > 5cm) IMPRESSION: TOTAL SCORE: 8 / 8
--- NOTE | 2019-03-08 16:45 | P.MSEPDOC ---
Presenting Problems - Arrival Data Date of Arrival on Unit: 02/24/19 Time of Arrival on Unit: 13:25 Mode of Transport: Portable Disposition - Disposition Discharge Date: 02/24/19 Discharge Time: 14:14 I agree with the RN Medical Screening Exam: Yes Risk & Benefit of care provided described in d/c instruction: Yes Diagnosis: GESTATIONAL DIABETES IN , INSULIN CONTROLLED
== END 2019-02-24 14:16 | disposition home or self-care (01) ==
LOC: FBPOP 13:16
PROVIDERS: ATTEND Obstetrics & Gynecology
DX: O24.414 Gestational diabetes mellitus in pregnancy, insulin controlled (principal); Z3A.00 Weeks of gestation of pregnancy not specified
CPT/HCPCS: 76819

== ENCOUNTER 2019-03-03 14:18 | Outpatient (CLI) | payer OTHER ==
--- NOTE | 2019-03-03 15:28 | US ---
EXAMINATION TYPE: US OB BPP wo non-stress DATE OF EXAM: 03/03/2019 COMPARISON: NONE CLINICAL HISTORY: Gestational diabetes. Gestational diabetes EXAM PERFORMED: Transabdominal (TA) BPP PARAMETERS: PRESENTATION: Vertex LIE: Longitudinal?? HEART RATE: 139 bpm RHYTHM: Normal STEPHAN: 13.3cm DIAPHRAGM IMAGED: yes BPP SCORIN. Breathin (1 episode of breathing of 30 second duration in 30 minutes of scanning time) 2. Movement: 2 (at least 3 discrete body movements in 30 minutes) 3. Tone: 2 (1 episode of active flexion/extension of limb) 4. STEPHAN: 2 (STEPHAN index > 5cm) IMPRESSION: TOTAL SCORE: 8 / 8
== END 2019-03-03 15:25 | disposition home or self-care (01) ==
LOC: FBPOP 14:18
PROVIDERS: ATTEND Obstetrics & Gynecology
DX: O24.419 Gestational diabetes mellitus in pregnancy, unspecified control (principal)
CPT/HCPCS: 59025; 76819

== ENCOUNTER 2019-03-08 16:41 | Outpatient (CLI) | payer OTHER | END 2019-03-08 17:08 | disposition home or self-care (01) | LOC: FBPOP 16:41 | PROVIDERS: ATTEND Obstetrics & Gynecology | DX: O24.415 Gestational diabetes mellitus in pregnancy, controlled by oral hypoglycemic drugs (principal) | CPT/HCPCS: 59025; G0463; 99213 ==

== ENCOUNTER → 2019-03-10 | Outpatient (CLI) | payer OTHER ==
--- NOTE | 2019-03-10 15:15 | US ---
EXAMINATION TYPE: US OB BPP wo non-stress DATE OF EXAM: 03/10/2019 COMPARISON: NONE CLINICAL HISTORY: gest dm. weekly biophysical due to GM, baby very active EXAM PERFORMED: Transabdominal (TA) BPP PARAMETERS: PRESENTATION: Vertex LIE: Longitudinal?? HEART RATE: 135 bpm RHYTHM: Normal STEPHAN: 12.2 DIAPHRAGM IMAGED: yes BPP SCORIN. Breathin (1 episode of breathing of 30 second duration in 30 minutes of scanning time) 2. Movement: 2 (at least 3 discrete body movements in 30 minutes) 3. Tone: 2 (1 episode of active flexion/extension of limb) 4. STEPHAN: 2 (STEPHAN index > 5cm) TOTAL SCORE: 8 / 8 IMPRESSIONS: 1. Normal biophysical profile scoring 8 out of 8 points 2. Cardiac activity measures 135 bpm.
--- NOTE | 2019-03-30 17:36 | P.MSEPDOC ---
Presenting Problems - Arrival Data Date of Arrival on Unit: 03/10/19 Time of Arrival on Unit: 13:35 Mode of Transport: Portable Disposition - Disposition Discharge Date: 03/10/19 Discharge Time: 15:15 I agree with the RN Medical Screening Exam: No Physician's MSE Comment: There is nothing documented by the nurses in this MSE and therefore I cannot agree to it. Risk & Benefit of care provided described in d/c instruction: No Diagnosis: RELATED CONDITIONS, UNSP, UNSPECIFIED TRIMESTER
== END | disposition home or self-care (01) ==
LOC: FBPOP 13:35
PROVIDERS: ATTEND Obstetrics & Gynecology
DX: O26.893 Other specified pregnancy related conditions, third trimester (principal); Z3A.37 37 weeks gestation of pregnancy
CPT/HCPCS: 59025; 76819

== ENCOUNTER 2019-03-28 06:00 | Inpatient (IN) | payer OTHER ==
[2019-03-28] MEDS ORDERED: AMPICILLIN 2,000 MG in SODIUM CHLORIDE 0.9% 100 ML IVPB STA (07:00)
[2019-03-28] MEDS ORDERED: LIDOCAINE 0.5% (PF) 5 MG/ML (50 ML SDV) SQ PRN (07:00)
[2019-03-28] MEDS ORDERED: OXYTOCIN 30 UNITS/500 ML NS 30 UNIT in SALINE 1 500ML.BAG IV SCH (07:00)
[2019-03-28] MEDS ORDERED: METHYLERGONOVINE 0.2 MG/ML 1 ML AMP IM PRN (07:00)
[2019-03-28] MEDS ORDERED: CARBOPROST TROMETHAMINE 250 MCG/ML 1 ML AMP IM PRN (07:00)
[2019-03-28] MEDS ORDERED: TERBUTALINE 1 MG/ML VIAL SQ PRN (07:00)
[2019-03-28] MEDS ORDERED: OXYTOCIN 10 UNIT/ML 1 ML VIAL IM PRN (07:00)
[2019-03-28 07:15] LABS: Basophils # (A) 0.2 k/uL (0-0.2); Basophils % (A) 1 %; Eosinophils # (A) 0.3 k/uL (0-0.7); Eosinophils % (A) 2 %; HCT 34.5 % (34.0-46.0); HGB 11.2 gm/dL (11.4-16.0); Lymphocytes % (A) 17 %; MCH 29.2 pg (25.0-35.0); MCHC 32.6 g/dL (31.0-37.0); MCV 89.6 fL (80.0-100.0); Mean Platelet Volume 7.5; Monocytes # (A) 1.3 k/uL (0-1.0); Monocytes % (A) 7 %; Neutrophils # (A) 12.6 k/uL (1.3-7.7); Neutrophils % (A) 71 %; Platelet Count 290 k/uL (150-450); RBC 3.86 m/uL (3.80-5.40); RDW 13.5 % (11.5-15.5); WBC 17.7 k/uL (3.8-10.6)
[2019-03-28 07:35] VITALS: BMI 28.3
[2019-03-28 07:42] LABS: Glucose,Whole Blood 90 mg/dL (75-99)
[2019-03-28] MEDS: LACTATED RINGERS 1,000 ML IV SCH ×3 (07:50→10:47)
[2019-03-28] MEDS ORDERED: fentaNYL (PF) 50 MCG/ML 5 ML AMP ONE (09:21)
[2019-03-28] MEDS ORDERED: SODIUM CHLORIDE 0.9% 100 ML BAG ONE (09:21)
[2019-03-28] MEDS ORDERED: ROPIVACAINE 5MG/ML 20ML VIAL ONE (09:21)
[2019-03-28] MEDS ORDERED: AMPICILLIN 1,000 MG in SODIUM CHLORIDE 0.9% 50 ML IVPB SCH (11:00)
[2019-03-28] MEDS ORDERED: ZOLPIDEM 5 MG TAB PO PRN (11:41)
[2019-03-28] MEDS ORDERED: ACETAMINOPHEN TAB 325 MG TAB PO PRN (11:41)
[2019-03-28] MEDS ORDERED: WITCH HAZEL 1 EACH MED..PAD TOPICAL PRN (11:41)
[2019-03-28] MEDS ORDERED: LANOLIN CREAM 5 GM TUBE TOPICAL PRN (11:41)
[2019-03-28] MEDS ORDERED: BENZOCAINE/MENTHOL SPRAY 1 GM/SPRAY AEROSOL TOPICAL PRN (11:41)
[2019-03-28] MEDS ORDERED: SIMETHICONE 80 MG CHEWABLE PO PRN (11:41)
[2019-03-28] MEDS ORDERED: diphenhydrAMINE 25 MG CAP PO PRN (11:41)
[2019-03-28] MEDS ORDERED: diphenhydrAMINE 50 MG CAP PO PRN (11:41)
[2019-03-28] MEDS ORDERED: HYDROCORTISONE 2.5% RECTAL CREAM 30 GM TUBE RECTAL PRN (11:41)
[2019-03-28] MEDS ORDERED: diphenhydrAMINE 50 MG/ML 1 ML VIAL IVP PRN ×2 (11:41)
--- NOTE | 2019-03-28 11:43 | P.HPOB ---
History of Present Illness H&P Date: 03/28/19 Chief Complaint: Intrauterine at term Patient is a 24 at 39 weeks gestation arise for induction of labor. Her course is been relatively uncommon complicated and she is feeling well at this time. She did have some bipolar and depression symptoms but otherwise she is remained stable. Pertinent labs could A- blood type, Rh and it was negative, rubella was immune, hepatitis B surface antigen as well as RPR were negative. She was dilated to 2 3 cm and artificial rupture membranes was performed with clear fluid noted. Category 1 tracing is noted. Assessment intrauterine term. Plan expect spontaneous vaginal delivery with Pitocin augmentation of labor and group B strep prophylaxis Past Medical History Past Medical History: Asthma, GERD/Reflux Additional Past Medical History / Comment(s): vertigo History of Any Multi-Drug Resistant Organisms: None Reported Past Surgical History: No Surgical Hx Reported Additional Past Surgical History / Comment(s): 07-27-2014 had scope done with dr an with inflammation Past Anesthesia/Blood Transfusion Reactions: Motion Sickness Past Psychological History: Anxiety, Depression Smoking Status: Current every day smoker Past Alcohol Use History: Occasional Additional Past Alcohol Use History / Comment(s): STARTED SMOKING MAR 2014 Past Drug Use History: None Reported Additional Drug Use History / Comment(s): MOM STATES USES DAILY. INSTRUCTED MOTHER THAT PT NEEDS TO REFRAIN FROM USE AT LEAST 24 HOURS PRIOR TO PROCEDURE - Past Family History Mother Family Medical History: Asthma, COPD Additional Family Medical History / Comment(s): insomnia, hypoglycemia, severe hbrmnkrov-ecif-jrgkni Sister(s) Additional Family Medical History / Comment(s): hypoglycemia Medications and Allergies Home Medications Medication Instructions Recorded Confirmed Type 78/Iron/Folate 1/Dha 1 each PO DAILY 11/11/16 03/28/19 History [Prenate Dha Softgel] metFORMIN HCL 1,000 mg PO DAILY 03/03/19 03/28/19 History metFORMIN HCL 500 mg PO HS 03/03/19 03/28/19 History Allergies Allergy/AdvReac Type Severity Reaction Status Date / Time venom-honey bee Allergy Anaphylaxis Verified 03/28/19 07:00 [bee venom (honey bee)] codeine AdvReac Severe Nausea & Verified 03/28/19 07:49 Vomiting latex AdvReac Rash/Hives Verified 03/28/19 07:00 Exam Osteopathic Statement: *. No significant issues noted on an osteopathic struct ural exam other than those noted in the History and Physical/Consult. Vital Signs Temp Pulse Resp BP 03/28/19 11:37 98.8 F 89 16 102/51 03/28/19 07:26 98.7 F 91 16 120/69 Intake and Output 03/27/19 03/28/19 03/28/19 22:59 06:59 14:59 Other: Weight 65.771 kg - OBG Physical Exam Breast: both: normal (no masses) Abdomen: bowel sounds normal, no diffuse tenderness, no bruit present, no guarding noted, no hepatomegaly, no splenomegaly, no mass Vulva: both: normal Vagina: normal moisture, no discharge Cervix: no lesion, no discharge Uterus: normal size, normal contour Adnexa: both: normal Anus/Rectum: normal perianal skin, no rectal mass, no hemorrhoids, heme negative Results Result Diagrams: 03/28/19 07:00 Abnormal Lab Results - Last 24 Hours (Table) 03/28/19 Range/Units 07:00 WBC 17.7 H (3.8-10.6) k/uL Hgb 11.2 L (11.4-16.0) gm/dL Neutrophils # 12.6 H (1.3-7.7) k/uL Monocytes # 1.3 H (0-1.0) k/uL
--- NOTE | 2019-03-28 11:44 | P.PROBDLV ---
Vaginal Delivery Note - . Vaginal Delivery Note: Patient progressed complete and pushed with spontaneous vaginal delivery of a viable female over an intact perineum. Lung deliver the head a nuchal cord 1 was noted but baby was delivered through the nuchal cord. Interim posterior shoulders were easily delivered. Once baby was fully delivered mouth nares were bulb suctioned and baby was placed mother's abdomen where the umbilical cord was allowed to pulsate for 30 seconds prior to clamping and cutting. Once this was accomplished nursery personnel was present and assumed care. Placenta was then delivered intact and Pitocin was added to the IV. scores are pending but weight of 6 pounds and 15 ounces. Both mother and baby are stable findings delivery.
[2019-03-28] MEDS ORDERED: OXYTOCIN 20 UNITS/1000 ML NS 1,000 ML IV SCH (11:45)
[2019-03-28] MEDS: IBUPROFEN 600 MG TAB PO PRN ×2 (12:34→19:59)
[2019-03-28] MEDS: SENNOSIDES-DOCUSATE SODIUM 1 EACH TAB PO SCH (19:59)
[2019-03-29] MEDS ORDERED: Rhogam IMMUNE GLOBULIN 1,500 UNIT/1 ML IM ONE (00:32)
[2019-03-29 07:05] LABS: Basophils # (A) 0.1 k/uL (0-0.2); Basophils % (A) 0 %; Eosinophils # (A) 0.3 k/uL (0-0.7); Eosinophils % (A) 2 %; HCT 29.1 % (34.0-46.0); Lymphocytes # (A) 3.3 k/uL (1.0-4.8); Lymphocytes % (A) 22 %; MCH 31.1 pg (25.0-35.0); MCHC 34.3 g/dL (31.0-37.0); MCV 90.6 fL (80.0-100.0); Mean Platelet Volume 7.8; Monocytes # (A) 1.1 k/uL (0-1.0); Monocytes % (A) 7 %; Neutrophils % (A) 67 %; Platelet Count 255 k/uL (150-450); RBC 3.22 m/uL (3.80-5.40); RDW 13.7 % (11.5-15.5); WBC 15.1 k/uL (3.8-10.6)
[2019-03-29] MEDS: SENNOSIDES-DOCUSATE SODIUM 1 EACH TAB PO SCH ×2 (07:53→21:05)
[2019-03-29] MEDS: IBUPROFEN 600 MG TAB PO PRN ×3 (07:53→21:05)
--- NOTE | 2019-03-29 10:26 | P.PN ---
Progress Note - Text Progress Note Date: 03/29/19 Patient seen and evaluated this morning day 1. Grossly she appears in no acute distress and relates that she is overall feeling well. She related that last night at approximately midnight she had an episode of chest pain when she was standing walkaround room she did her to take deep breath and it felt like there was a "bubble" in her right side. Unclear what the etiology of this was. She does not relate information to the nurse the time and relates that she feels much better not is not having no symptoms now. Consideration for pulmonary embolism will be needed if it persists or continues. At this time weren't have her ambulate a little bit more and see if the symptoms return. There is no acute shortness of breath and no dyspnea with her at this second. Her lungs are otherwise clear her heart is regular her abdomen is soft and uterus is firm below the umbilicus. Extremities are without pain or is no sign or symptom of DVT either. Assessment day 1 Plan reassess later this morning for return of shortness of breath/painful breathing.
--- NOTE | 2019-03-29 11:05 | P.PN ---
Progress Note - Text Progress Note Date: 03/29/19 Isael she was reevaluated, she is doing very well now. She denies any shortness of breath or dyspnea. She is standing up walking around the room draped and coughing. She voices no complaints. Plan discharged home later today if baby is stable for discharge otherwise plan for discharge tomorrow. She will notify us if there is recurrence of symptoms.
[2019-03-30] MEDS: SENNOSIDES-DOCUSATE SODIUM 1 EACH TAB PO SCH (08:00)
--- NOTE | 2019-03-30 08:58 | P.DS ---
Providers Date of admission: 03/28/19 06:33 Expected date of discharge: 03/30/19 Attending physician: Mekhi Gamboa Primary care physician: Stated None Hospital Course: Doing very well day 2. Involuting, voiding and tolerating her diet. She voices no complaints. Vital signs are stable and afebrile. Heart regular, lungs clear, extremities without pain. Abdomen is soft uterus is firm and lochia is reported be light. Assessment day 2. Plan discharged home follow up with me in 4-6 weeks. Patient Condition at Discharge: Good Plan - Discharge Summary New Discharge Prescriptions: New Ibuprofen [Motrin] 600 mg PO Q6HR PRN #30 tab PRN Reason: Pain No Action 78/Iron/Folate 1/Dha [Prenate Dha Softgel] 1 each PO DAILY metFORMIN HCL 1,000 mg PO DAILY metFORMIN HCL 500 mg PO HS Discharge Medication List 78/Iron/Folate 1/Dha [Prenate Dha Softgel] 1 each PO DAILY 11/11/16 [History] metFORMIN HCL 1,000 mg PO DAILY 03/03/19 [History] metFORMIN HCL 500 mg PO HS 03/03/19 [History] Ibuprofen [Motrin] 600 mg PO Q6HR PRN #30 tab 03/29/19 [Rx] Follow up Appointment(s)/Referral(s): Mekhi Gamboa DO [Doctor of Osteopathic Medicine] - 4 Weeks Activity/Diet/Wound Care/Special Instructions: No heavy lifting, limit stairs and driving, and pelvic rest. If any high temperatures, heavy bleeding, or severe pain call my office
[2019-03-30 16:38] VITALS: BP 108/59; PULSE 87; RESP 18; TEMP 98.7
== END 2019-03-30 14:55 | disposition home or self-care (01) | DRG 807 ==
LOC: 4FBP 06:33
PROVIDERS: ADMIT Obstetrics & Gynecology; ATTEND Obstetrics & Gynecology
PROC: 10E0XZZ Delivery of Products of Conception, External Approach (ICD-10-PCS; principal; 2019-03-28)
PROC: 00HU33Z Insertion of Infusion Device into Spinal Canal, Percutaneous Approach (ICD-10-PCS; 2019-03-28)
PROC: 3E0R3BZ Introduction of Anesthetic Agent into Spinal Canal, Percutaneous Approach (ICD-10-PCS; 2019-03-28)
PROC: 3E033VJ Introduction of Other Hormone into Peripheral Vein, Percutaneous Approach (ICD-10-PCS; 2019-03-28)
PROC: 10907ZC Drainage of Amniotic Fluid, Therapeutic from Products of Conception, Via Natural or Artificial Opening (ICD-10-PCS; 2019-03-28)
PROC: 3E0234Z Introduction of Serum, Toxoid and Vaccine into Muscle, Percutaneous Approach (ICD-10-PCS; 2019-03-29)
DX: O69.81X0 Labor and delivery complicated by cord around neck, without compression, not applicable or unspecified (principal); Z37.0 Single live birth; O99.344 Other mental disorders complicating childbirth; Z3A.39 39 weeks gestation of pregnancy; F32.9 Major depressive disorder, single episode, unspecified; F41.9 Anxiety disorder, unspecified; O26.893 Other specified pregnancy related conditions, third trimester; Z67.11 Type A blood, Rh negative; O99.824 Streptococcus B carrier state complicating childbirth; O99.52 Diseases of the respiratory system complicating childbirth; J45.909 Unspecified asthma, uncomplicated; O99.62 Diseases of the digestive system complicating childbirth; K21.9 Gastro-esophageal reflux disease without esophagitis; O99.334 Smoking (tobacco) complicating childbirth; F17.200 Nicotine dependence, unspecified, uncomplicated; Z79.84 Long term (current) use of oral hypoglycemic drugs; Z79.899 Other long term (current) drug therapy; Z88.5 Allergy status to narcotic agent; Z91.030 Bee allergy status; Z91.040 Latex allergy status; Z82.5 Family history of asthma and other chronic lower respiratory diseases; Z84.89 Family history of other specified conditions; Z83.3 Family history of diabetes mellitus
CPT/HCPCS: 85025; 85461; 86850; 86900; 86901

== ENCOUNTER → 2019-06-07 | Outpatient (CLI) | payer OTHER ==
[2019-06-07 15:01] LABS: Basophils # (A) 0.1 k/uL (0-0.2); Basophils % (A) 1 %; Eosinophils # (A) 0.1 k/uL (0-0.7); Eosinophils % (A) 2 %; HCT 41.7 % (34.0-46.0); HGB 14.2 gm/dL (11.4-16.0); Lymphocytes # (A) 2.6 k/uL (1.0-4.8); Lymphocytes % (A) 30 %; MCH 29.5 pg (25.0-35.0); MCHC 34.1 g/dL (31.0-37.0); MCV 86.5 fL (80.0-100.0); Mean Platelet Volume 5.7; Monocytes # (A) 0.5 k/uL (0-1.0); Monocytes % (A) 6 %; Neutrophils # (A) 5.1 k/uL (1.3-7.7); Neutrophils % (A) 60 %; Platelet Count 286 k/uL (150-450); RBC 4.82 m/uL (3.80-5.40); RDW 13.5 % (11.5-15.5); WBC 8.5 k/uL (3.8-10.6)
== END | disposition home or self-care (01) ==
LOC: LABPAT 14:18
PROVIDERS: ATTEND Obstetrics & Gynecology
DX: Z01.812 Encounter for preprocedural laboratory examination (principal)
CPT/HCPCS: 85025

== ENCOUNTER 2019-06-09 06:32 | Day surgery (SDC) | payer OTHER ==
[2019-06-07 14:50] VITALS: BMI 24.4
[~2019-06-09 06:32] MED LIST: DEXAMETHASONE SOD PHOSPHATE 10 MG/ML 1 ML VIAL IV ONE; LACTATED RINGERS 1,000 ML IV SCH; LIDOCAINE 1% 20 ML VIAL (10MG/ML) FOR IV START INTRADERMA PRN; ONDANSETRON 4 MG/2 ML VIAL IVP ONE; Pre Op ABX Message 1 EACH MISC MISCELLANE ONE; fentaNYL (PF) 50 MCG/ML 2 ML AMP IV PRN
[2019-06-09] MEDS ORDERED: BUPIVACAINE (PF) 0.25% 30 ML VIAL SQ ONE ×2 (07:23)
[2019-06-09] MEDS ORDERED: PROPOFOL 10 MG/ML 20 ML VIAL IV ONE (07:28)
[2019-06-09] MEDS ORDERED: LIDOCAINE 1% INJ 10MG/ML (20 ML MDV) ONE (07:28)
[2019-06-09] MEDS ORDERED: fentaNYL (PF) 50 MCG/ML 2 ML AMP ONE (07:28)
[2019-06-09] MEDS ORDERED: GLYCOPYRROLATE 0.2 MG/ML 2 ML VIAL ONE (07:28)
[2019-06-09] MEDS ORDERED: ROCURONIUM BROMIDE 10 MG/ML 10 ML VIAL IV ONE (07:28)
[2019-06-09] MEDS ORDERED: NEOSTIGMINE 1 MG/ML 10 ML VIAL ONE (07:28)
[2019-06-09] MEDS ORDERED: MIDAZOLAM 2 MG/2 ML VIAL ONE (07:28)
[2019-06-09] MEDS ORDERED: KETOROLAC 30 MG/ML 1 ML VIAL ONE (07:28)
--- NOTE | 2019-06-09 07:42 | P.HPOB ---
History of Present Illness H&P Date: 06/09/19 Chief Complaint: Family planning Celine is a 24-year-old female who is completed her family planning desires permanent sterilization. Risks/benefits/alternatives to a laparoscopic tubal occlusion with the scopes were reviewed with the patient in detail and all questions were answered for her prior to proceeding to the operative room. She is aware this is designed to be permanent procedure and is not designed to be reversed. She is also aware that scissors a small failure rate of approximately 4 per thousand. She is aware of risk of bleeding/infection/damage to bladder or bowel/vascular injuries or or nerve injuries as well as others. Otherwise she is stable and all questions are answered prior to proceeding to the operating room. Past Medical History Past Medical History: Asthma, GERD/Reflux, Seizure Disorder Additional Past Medical History / Comment(s): vertigo, seizures 5 yrs ago-none since, vomiting blood during last but none since, anemia, non functioning gallbladder History of Any Multi-Drug Resistant Organisms: None Reported Past Surgical History: No Surgical Hx Reported Additional Past Surgical History / Comment(s): 07-27-2014 had scope done with dr palumbo-ibis with inflammation Past Anesthesia/Blood Transfusion Reactions: No Reported Reaction Additional Past Anesthesia/Blood Transfusion Reaction / Comment(s): never had anesthesia Smoking Status: Current every day smoker - Past Family History Father Family Medical History: Deep Vein Thrombosis (DVT) Mother Family Medical History: Asthma, COPD Additional Family Medical History / Comment(s): insomnia, hypoglycemia, severe hjcarrutr-otat-urcvln Sister(s) Additional Family Medical History / Comment(s): hypoglycemia Medications and Allergies Home Medications Medication Instructions Recorded Confirmed Type Multivitamin [Multivitamins Adult 1 each PO DAILY 06/07/19 06/09/19 History Gummies] Allergies Allergy/AdvReac Type Severity Reaction Status Date / Time venom-honey bee Allergy Anaphylaxis Verified 06/09/19 06:49 [bee venom (honey bee)] codeine AdvReac Severe Nausea & Verified 06/09/19 06:49 Vomiting latex AdvReac Rash/Hives Verified 06/09/19 06:49 Exam Osteopathic Statement: *. No significant issues noted on an osteopathic structural exam other than those noted in the History and Physical/Consult. Vital Signs Temp Pulse Resp BP Pulse Ox 06/09/19 07:02 98.2 F 75 16 118/56 96 Intake and Output 06/08/19 06/09/19 06/09/19 22:59 06:59 14:59 Intake Total 200 Balance 200 Intake: IV 200 Other: Weight 57.153 kg - OBG Physical Exam Breast: both: normal (no masses) Abdomen: bowel sounds normal, no diffuse tenderness, no bruit present, no guarding noted, no hepatomegaly, no splenomegaly, no mass Vulva: both: normal Vagina: normal moisture, no discharge Cervix: no lesion, no discharge Uterus: normal size, normal contour Adnexa: both: normal Anus/Rectum: normal perianal skin, no rectal mass, no hemorrhoids, heme negative
[2019-06-09] MEDS ORDERED: LACTATED RINGERS 1,000 ML IV ONE (08:14)
--- NOTE | 2019-06-09 08:21 | P.OP ---
Date of Procedure: 06/09/19 Preoperative Diagnosis: Family planning Postoperative Diagnosis: Same Procedure(s) Performed: Laparoscopic tubal occlusion with Filshie clips Anesthesia: DANA Surgeon: Mekhi Gamboa Estimated Blood Loss (ml): 2 IV fluids (ml): 600 Urine output (ml): 20 Pathology: none sent Condition: stable Disposition: same day Operative Findings: Normal female pelvic anatomy Description of Procedure: Patient was taken to the operating suite where a general anesthetic was found be adequate. She was prepped and draped in the normal sterile fashion and placed in the dorsal lithotomy position. Initially a speculum was used to find the cervix it was grasped with an Allis clamp sounded to 7.5 cm and a uterine manipulator was inserted without difficulty. These instruments were then removed and a latex free catheter was used to drain the bladder urine. Once this was completed gloves were changed and attention was turned to the abdominal portion procedure where 2 mL of quarter percent Marcaine was injected per iumbilically. Through this injected anesthetic a 5 mm skin incision was made and this incision was then used to pass a 5 mm trocar and sleeve through under direct visualization with an optical trocar. Once peritoneal placement was assured gas was allowed to fully insufflate the abdomen and patient was placed in steep Trendelenburg position and a second 8 mm skin incision was made 3 cm above the pubic symphysis in the midline. Through this incision a second port and sleeve were inserted under direct visualization. Observations the pelvis was then done. Fallopian tubes were elevated and a Filshie clip was applied 2-3 cm from uterine cornu bilaterally and with no bleeding noted in the mesosalpinx instruments were removed and gas was allowed to expel from the abdomen. 5 deep breaths were provided during this process. Once completed incidents were removed and 4-0 Vicryl was used to close incisions subcuticularly. The remaining 8-10 mL of quarter percent Marcaine was injected around these incisions. Instruments were then removed from the vagina. Sponge, lap, needle counts were all correct 2. Patient was then taken to the recovery room in stable and satisfactory condition. Plan - Discharge Summary Discharge Rx Participant: Yes New Discharge Prescriptions: New Ibuprofen [Motrin] 600 mg PO Q6HR PRN #30 tab PRN Reason: Pain HYDROcodone/APAP 5-325MG [[place] 5-325] 1 tab PO Q4HR PRN #30 tab PRN Reason: Pain No Action Multivitamin [Multivitamins Adult Gummies] 1 each PO DAILY Discharge Medication List Multivitamin [Multivitamins Adult Gummies] 1 each PO DAILY 06/07/19 [History] HYDROcodone/APAP 5-325MG [[place] 5-325] 1 tab PO Q4HR PRN #30 tab 06/09/19 [Rx] Ibuprofen [Motrin] 600 mg PO Q6HR PRN #30 tab 06/09/19 [Rx] Follow up Appointment(s)/Referral(s): Mekhi Gamboa DO [Doctor of Osteopathic Medicine] - 2 Weeks Activity/Diet/Wound Care/Special Instructions: No heavy lifting, limit stairs and driving, and pelvic rest. If any high temperatures, heavy bleeding, or severe pain call my office Discharge Disposition: HOME SELF-CARE
[2019-06-09 08:30] VITALS: TEMP 97.1
[2019-06-09] MEDS: HYDROmorphone 0.5 MG/0.5 ML SYRINGE IVP PRN ×2 (08:33→08:38)
[2019-06-09] MEDS ORDERED: HYDROcodone/APAP 5-325MG 1 EACH TAB PO ONE (09:26)
[2019-06-09 09:53] VITALS: RESP 16
[2019-06-09 10:03] VITALS: BP 118/78; PULSE 54
== END 2019-06-09 10:29 | disposition home or self-care (01) ==
LOC: OR 06:32
PROVIDERS: ATTEND Obstetrics & Gynecology
DX: Z30.2 Encounter for sterilization (principal); J45.909 Unspecified asthma, uncomplicated; K21.9 Gastro-esophageal reflux disease without esophagitis; G40.909 Epilepsy, unspecified, not intractable, without status epilepticus; F41.9 Anxiety disorder, unspecified; F31.9 Bipolar disorder, unspecified; D64.9 Anemia, unspecified; Z91.040 Latex allergy status; Z88.5 Allergy status to narcotic agent; Z91.030 Bee allergy status; F17.210 Nicotine dependence, cigarettes, uncomplicated; Z83.49 Family history of other endocrine, nutritional and metabolic diseases; Z82.5 Family history of asthma and other chronic lower respiratory diseases; Z82.49 Family history of ischemic heart disease and other diseases of the circulatory system
CPT/HCPCS: 81025; 58671; J2250; J1100; J2710; J2405; J2001; J3010; J1885; J2704; J1170

== ENCOUNTER → 2019-08-11 | Outpatient (CLI) | payer OTHER ==
--- NOTE | 2019-08-11 14:27 | XR ---
EXAMINATION TYPE: XR elbow complete LT DATE OF EXAM: 08/11/2019 CLINICAL HISTORY: Pain after work injury. TECHNIQUE: Frontal, lateral and oblique images of the left elbow are obtained. COMPARISON: None FINDINGS: There is no acute fracture/dislocation evident in the left elbow. No abnormal fat pad sig ns are seen. The overlying soft tissue appears unremarkable. IMPRESSION: There is no acute fracture or dislocation in the left elbow.
--- NOTE | 2019-08-11 14:28 | XR ---
EXAMINATION TYPE: XR wrist complete LT, XR hand complete LT DATE OF EXAM: 08/11/2019 CLINICAL HISTORY: Pain after work injury. TECHNIQUE: Frontal, lateral and oblique images of the left hand and wrist are obtained. Fourth scaph oid view left wrist. COMPARISON: None FINDINGS: There is no acute fracture/dislocation evident in the left wrist. The joint spaces in the left wrist appear within normal limits. The overlying soft tissue appears unremarkable. Images of the left hand show no acute fracture or dislocation. The joint spaces are preserved in the left hand. Overlying soft tissue is unremarkable. IMPRESSION: There is no acute fracture or dislocation in the left hand or wrist.
== END | disposition home or self-care (01) ==
LOC: RADXRMAIN 13:56
PROVIDERS: ATTEND Emergency Medicine
DX: M77.02 Medial epicondylitis, left elbow (principal); S56.212A Strain of other flexor muscle, fascia and tendon at forearm level, left arm, initial encounter

== ENCOUNTER 2019-09-12 21:51 | Emergency (ER) | payer OTHER ==
[2019-09-12 21:55] VITALS: RESP 18
--- NOTE | 2019-09-12 22:15 | ED ---
Upper Extremity HPI - General Chief Complaint: Extremity Injury, Upper Stated Complaint: Right arm pain Time Seen by Provider: 09/12/19 21:57 Source: patient Mode of arrival: ambulatory Limitations: no limitations - History of Present Illness Initial Comments: This patient is a 24-year-old woman who presents to be evaluated for pain to the upper portion of the right arm that developed yesterday in the morning. She states that over the course of today she noticed that there may have been a little bit of swelling and the pain was worse. She could not identify any trauma to the arm. She has not noted any associated symptoms, including no fever or chills, chest pain, cough, dyspnea or hemoptysis. No palpitations. Patient was concerned about possibility of blood clot as her father reportedly had a blood clot previously. The patient is taking amoxicillin since yesterday for which she was told is an infection of her hand. She had seen her physician in the clinic yesterday and was started on amoxicillin. No fever or chills. She states that her hand does appear to be improving. She indicates the ulnar aspect of the right hand MD Complaint: Injury to:: right, arm Onset/Timin -: hour(s) Other Extremity Injury: Arm: Right Other Injuries: none Handedness: right Place: home Improves With: none Worsens With: movement of extremity Associated Symptoms: denies other symptoms - Related Data Home Medications Medication Instructions Recorded Confirmed Multivitamin [Multivitamins Adult 1 each PO DAILY 06/07/19 06/09/19 Gummies] Previous Rx's Medication Instructions Recorded HYDROcodone/APAP 5-325MG [[place] 1 tab PO Q4HR PRN #30 tab 06/09/19 5-325] Ibuprofen [Motrin] 600 mg PO Q6HR PRN #30 tab 06/09/19 Allergies Allergy/AdvReac Type Severity Reaction Status Date / Time venom-honey bee Allergy Anaphylaxis Verified 09/12/19 21:55 [bee venom (honey bee)] codeine AdvReac Severe Nausea & Verified 09/12/19 21:55 Vomiting latex AdvReac Rash/Hives Verified 09/12/19 21:55 Review of Systems ROS Statement: Those systems with pertinent positive or pertinent negative responses have been documented in the HPI. ROS Other: All systems not noted in ROS Statement are negative. Constitutional: Denies: fever, chills, weakness Respiratory: Denies: cough, dyspnea, hemoptysis Cardiovascular: Denies: chest pain, palpitations, dyspnea on exertion, edema, syncope Gastrointestinal: Denies: abdominal pain, vomiting Musculoskeletal: Reports: as per HPI, myalgia (Right arm) Skin: Reports: as per HPI, other (Right hand) Neurological: Denies: headache, weakness Past Medical History Past Medical History: Asthma, GERD/Reflux Additional Past Medical History / Comment(s): vertigo History of Any Multi-Drug Resistant Organisms: None Reported Past Surgical History: Tubal Ligation Additional Past Surgical History / Comment(s): 07-27-2014 had scope done with dr an with inflammation Past Anesthesia/Blood Transfusion Reactions: Motion Sickness Past Psychological History: Anxiety, Depression Smoking Status: Current every day smoker Past Alcohol Use History: None Reported Past Drug Use History: None Reported - Past Family History Father Family Medical History: Deep Vein Thrombosis (DVT) Mother Family Medical History: Asthma, COPD Additional Family Medical History / Comment(s): insomnia, hypoglycemia, severe lihygyyno-gfku-wctvbk Sister(s) Additional Family Medical History / Comment(s): hypoglycemia General Exam Limitations: no limitations General appearance: alert, in no apparent distress Head exam: Present: atraumatic, normocephalic Respiratory exam: Present: normal lung sounds bilaterally. Absent: respiratory distress, wheezes, rales, rhonchi, stridor Cardiovascular Exam: Present: regular rate, normal rhythm, normal heart sounds. Absent: systolic murmur, diastolic murmur, rubs, gallop Right Shoulder Exam: Present: normal inspection Upper Arm exam: Present: full ROM, tenderness (Mild tenderness medial aspect of right arm just proximal to the right elbow.). Absent: swelling, abrasion, laceration, ecchymosis, deformity, crepidus, dislocation, erythema Elbow exam: Present: normal inspection, full ROM. Absent: tenderness, swelling, abrasion, laceration, ecchymosis, deformity, crepitus, dislocation, erythema, effusion Forearm Wrist exam: Present: normal inspection Hand Wrist exam: Present: full ROM, erythema, other (Patient does have one by 2 cm area of erythema and warmth to the ulnar aspect of the right hand). Absent: tenderness, swelling, abrasion, laceration, ecchymosis, deformity, crepitus, dislocation Vascular: Present: normal capillary refill, radial pulse (Normal) Skin exam: Present: warm, dry, intact, normal color Course Vital Signs 09/12/19 21:52 Temperature 98.9 F Pulse Rate 89 Respiratory 18 Rate Blood Pressure 143/96 O2 Sat by Pulse 100 Oximetry Medical Decision Making - Lab Data Result diagrams: 09/12/19 22:20 09/12/19 22:20 Lab Results 09/12/19 09/12/19 09/12/19 Range/Units 22:20 22:20 22:20 WBC 8.8 (3.8-10.6) k/uL RBC 5.02 (3.80-5.40) m/uL Hgb 14.4 (11.4-16.0) gm/dL Hct 42.9 (34.0-46.0) % MCV 85.4 (80.0-100.0) fL MCH 28.8 (25.0-35.0) pg MCHC 33.7 (31.0-37.0) g/dL RDW 12.6 (11.5-15.5) % Plt Count 270 (150-450) k/uL Neutrophils % 61 % Lymphocytes % 29 % Monocytes % 6 % Eosinophils % 2 % Basophils % 0 % Neutrophils # 5.4 (1.3-7.7) k/uL Lymphocytes # 2.5 (1.0-4.8) k/uL Monocytes # 0.6 (0-1.0) k/uL Eosinophils # 0.2 (0-0.7) k/uL Basophils # 0.0 (0-0.2) k/uL D-Dimer 0.31 (<0.60) mg/L FEU Sodium 137 (137-145) mmol/L Potassium 4.2 (3.5-5.1) mmol/L Chloride 104 (98-107) mmol/L Carbon Dioxide 24 (22-30) mmol/L Anion Gap 9 mmol/L BUN 18 H (7-17) mg/dL Creatinine 0.57 (0.52-1.04) mg/dL Est GFR (CKD-EPI)AfAm >90 (>60 ml/min/1.73 sqM) Est GFR (CKD-EPI)NonAf >90 (>60 ml/min/1.73 sqM) Glucose 98 (74-99) mg/dL Calcium 9.4 (8.4-10.2) mg/dL C-Reactive Protein <5.0 (<10.0) mg/L Disposition Clinical Impression: Arm pain, medial Disposition: HOME SELF-CARE Condition: Good Instructions (If sedation given, give patient instructions): Arm Pain (ED) Is patient prescribed a controlled substance at d/c from ED?: No Referrals: Cesar Joy MD [Primary Care Provider] - 1-2 days
[2019-09-12 22:25] LABS: Basophils % (A) 0 %; Eosinophils # (A) 0.2 k/uL (0-0.7); Eosinophils % (A) 2 %; HCT 42.9 % (34.0-46.0); HGB 14.4 gm/dL (11.4-16.0); Lymphocytes # (A) 2.5 k/uL (1.0-4.8); Lymphocytes % (A) 29 %; MCH 28.8 pg (25.0-35.0); MCHC 33.7 g/dL (31.0-37.0); MCV 85.4 fL (80.0-100.0); Monocytes # (A) 0.6 k/uL (0-1.0); Monocytes % (A) 6 %; Neutrophils # (A) 5.4 k/uL (1.3-7.7); Neutrophils % (A) 61 %; Platelet Count 270 k/uL (150-450); RBC 5.02 m/uL (3.80-5.40); RDW 12.6 % (11.5-15.5); WBC 8.8 k/uL (3.8-10.6)
[2019-09-12 22:38] LABS: African American GFR (CKD) >90 (>60 ml/min/1.73 sqM); Anion Gap 9 mmol/L; Blood Urea Nitrogen 18 mg/dL (7-17); C Reactive Protein <5.0 mg/L (<10.0); Calcium 9.4 mg/dL (8.4-10.2); Carbon Dioxide 24 mmol/L (22-30); Chloride 104 mmol/L (98-107); Glucose 98 mg/dL (74-99); Non-African American GFR(CKD) >90 (>60 ml/min/1.73 sqM); Potassium 4.2 mmol/L (3.5-5.1); Sodium 137 mmol/L (137-145)
[2019-09-12] MEDS ORDERED: NAPROXEN 250 MG TAB PO STA (23:08)
[2019-09-12] MEDS ORDERED: ACETAMINOPHEN TAB 325 MG TAB PO STA (23:08)
[2019-09-12 23:10] VITALS: BP 112/69; PULSE 70; TEMP 98.3
== END 2019-09-12 23:14 | disposition home or self-care (01) ==
LOC: EC 21:51
DX: M79.621 Pain in right upper arm (principal); L53.9 Erythematous condition, unspecified; F17.200 Nicotine dependence, unspecified, uncomplicated; Z88.5 Allergy status to narcotic agent; Z91.030 Bee allergy status; Z91.040 Latex allergy status
CPT/HCPCS: 36415; 80048; 85025; 85379; 86140; 99283

== ENCOUNTER 2020-08-17 02:04 | Emergency (ER) | payer OTHER ==
[2020-08-17 02:12] VITALS: TEMP 98.8
[2020-08-17] MEDS ORDERED: MORPHINE SULFATE 4 MG/ML SYRINGE IVP STA (02:20)
[2020-08-17] MEDS ORDERED: ONDANSETRON 4 MG/2 ML VIAL IVP STA (02:20)
[2020-08-17] MEDS ORDERED: SODIUM CHLORIDE 0.9% 1,000 ML IV ONE (02:21)
--- NOTE | 2020-08-17 02:23 | ED ---
Abdominal Pain HPI - General Source: patient, family Mode of arrival: ambulatory Limitations: no limitations <Nena Gruber - Last Filed: 08/17/20 02:21> <Pavel Russell - Last Filed: 08/17/20 04:46> - General Chief Complaint: Abdominal Pain Stated Complaint: Abd Pain Time Seen by Provider: 08/17/20 02:15 - History of Present Illness Initial Comments: 25 year-old female patient presents to the emergency department today for evaluation of right lower quadrant abdominal pain that started around 8:30 this evening. Patient states that the pain is radiating through to her back. Hurts with any type of movement. States she is having nausea but denies any vomiting. Denies any hematuria, dysuria, urinary frequency, urinary urgency. Denies any diarrhea or constipation. Denies hematochezia or melena. States she has had tubal ligation but denies any other abdominal surgeries. Denies any fever or chills. Denies any abnormal vaginal bleeding or discharge. Denies concern for sexually transmitted infections. Patient denies any recent rash, cough, shortness of breath, chest pain, numbness, tingling, dizziness, weakness, headache, visual changes, or any other complaints. (Nena Gruber) - Related Data Home Medications Medication Instructions Recorded Confirmed Multivitamin [Multivitamins Adult 1 each PO DAILY 06/07/19 06/09/19 Gummies] Previous Rx's Medication Instructions Recorded HYDROcodone/APAP 5-325MG [[place] 1 tab PO Q4HR PRN #30 tab 06/09/19 5-325] Ibuprofen [Motrin] 600 mg PO Q6HR PRN #30 tab 06/09/19 Allergies Allergy/AdvReac Type Severity Reaction Status Date / Time venom-honey bee Allergy Anaphylaxis Verified 08/17/20 02:12 [bee venom (honey bee)] codeine AdvReac Severe Nausea & Verified 08/17/20 02:12 Vomiting latex AdvReac Rash/Hives Verified 08/17/20 02:12 Review of Systems ROS Other: All systems not noted in ROS Statement are negative. <Nena Gruber - Last Filed: 08/17/20 02:21> ROS Other: All systems not noted in ROS Statement are negative. <Pavel Russell - Last Filed: 08/17/20 04:46> ROS Statement: Those systems with pertinent positive or pertinent negative responses have been documented in the HPI. Past Medical History Past Medical History: Asthma, COPD, GERD/Reflux Additional Past Medical History / Comment(s): vertigo, gallblader dysfunction, back pain History of Any Multi-Drug Resistant Organisms: None Reported Past Surgical History: Tubal Ligation Additional Past Surgical History / Comment(s): 07-27-2014 had scope done with dr an with inflammation Past Anesthesia/Blood Transfusion Reactions: Motion Sickness Past Psychological History: Anxiety, Depression Smoking Status: Current every day smoker Past Alcohol Use History: Occasional Past Drug Use History: None Reported - Past Family History Father Family Medical History: Deep Vein Thrombosis (DVT) Mother Family Medical History: Asthma, COPD Additional Family Medical History / Comment(s): insomnia, hypoglycemia, severe gfcgytygy-ljyv-tkdavf Sister(s) Additional Family Medical History / Comment(s): hypoglycemia <Nena Gruber M - Last Filed: 08/17/20 02:21> General Exam Limitations: no limitations General appearance: alert, in no apparent distress, other (This is a well- developed, well-nourished adult female patient in no acute distress. Vital signs upon presentation are temperature 98.8F, pulse 80, respirations 20, blood pressure 120/79, pulse ox 100% on room air.) Respiratory exam: Present: normal lung sounds bilaterally. Absent: respiratory distress, wheezes, rales, rhonchi, stridor Cardiovascular Exam: Present: regular rate, normal rhythm, normal heart sounds. Absent: systolic murmur, diastolic murmur, rubs, gallop, clicks GI/Abdominal exam: Present: soft, tenderness (Right lower quadrant; right upper quadrant), normal bowel sounds. Absent: distended, guarding, rebound, rigid Back exam: Present: normal inspection, CVA tenderness (R). Absent: CVA tenderness (L) Neurological exam: Present: alert, oriented X3, CN II-XII intact Psychiatric exam: Present: normal affect, normal mood Skin exam: Present: warm, dry, intact, normal color. Absent: rash <Nena Gruber - Last Filed: 08/17/20 02:21> General appearance: alert, in no apparent distress Head exam: Present: atraumatic, normocephalic, normal inspection Eye exam: Present: normal appearance, PERRL, EOMI. Absent: scleral icterus, conjunctival injection, periorbital swelling ENT exam: Present: normal exam, mucous membranes moist Neck exam: Present: normal inspection. Absent: tenderness, meningismus, lymphadenopathy Respiratory exam: Present: normal lung sounds bilaterally. Absent: respiratory distress, wheezes, rales, rhonchi, stridor Cardiovascular Exam: Present: regular rate, normal rhythm, normal heart sounds. Absent: systolic murmur, diastolic murmur, rubs, gallop, clicks GI/Abdominal exam: Present: soft, normal bowel sounds. Absent: distended, tenderness, guarding, rebound, rigid Extremities exam: Present: normal inspection, full ROM, normal capillary refill. Absent: tenderness, pedal edema, joint swelling, calf tenderness Back exam: Present: normal inspection Neurological exam: Present: alert, oriented X3, CN II-XII intact Psychiatric exam: Present: normal affect, normal mood Skin exam: Present: warm, dry, intact, normal color. Absent: rash <Pavel Russell - Last Filed: 08/17/20 04:46> Course <Pavel Russell - Last Filed: 08/17/20 04:46> Vital Signs 08/17/20 02:06 Temperature 98.8 F Pulse Rate 80 Respiratory 20 Rate Blood Pressure 120/79 O2 Sat by Pulse 100 Oximetry - Reevaluation(s) Reevaluation #1: 08/17/20 04:45 Medical records reviewed (Pavel Russell) Reevaluation #2: 08/17/20 04:45 Patient is in no acute distress (Pavel Russell) Reevaluation #3: 08/17/20 04:45 Patient is informed of results questions are answered (Pavel Russell) Medical Decision Making - Lab Data Result diagrams: 08/17/20 02:25 08/17/20 02:25 - Radiology Data Radiology results: report reviewed (CT head and pelvis and ultrasound of pelvis does show ovarian cyst), image reviewed <Pavel Russell - Last Filed: 08/17/20 04:46> - Medical Decision Making 25 female to the ER for evaluation patient presents today for evaluation regards to abdominal pain. Patient Dese for evaluation of severe abdominal pain. Pain is resolved now low here in the ER patient is CT of the abdomen pelvis as well as ultrasound showing no acute disease, patient does have ovarian cysts nonruptured. Will follow-up with OB for further evaluation (Pavel Russell) - Lab Data Lab Results 08/17/20 08/17/20 08/17/20 Range/Units 02:25 02:25 02:25 WBC 12.2 H (3.8-10.6) k/uL RBC 4.84 (3.80-5.40) m/uL Hgb 14.1 (11.4-16.0) gm/dL Hct 42.1 (34.0-46.0) % MCV 86.9 (80.0-100.0) fL MCH 29.0 (25.0-35.0) pg MCHC 33.4 (31.0-37.0) g/dL RDW 12.6 (11.5-15.5) % Plt Count 247 (150-450) k/uL MPV 7.1 Neutrophils % 62 % Lymphocytes % 29 % Monocytes % 6 % Eosinophils % 2 % Basophils % 1 % Neutrophils # 7.6 (1.3-7.7) k/uL Lymphocytes # 3.5 (1.0-4.8) k/uL Monocytes # 0.7 (0-1.0) k/uL Eosinophils # 0.2 (0-0.7) k/uL Basophils # 0.1 (0-0.2) k/uL Sodium (137-145) mmol/L Potassium (3.5-5.1) mmol/L Chloride (98-107) mmol/L Carbon Dioxide (22-30) mmol/L Anion Gap mmol/L BUN (7-17) mg/dL Creatinine (0.52-1.04) mg/dL Est GFR (CKD-EPI)AfAm (>60 ml/min/1.73 sqM) Est GFR (CKD-EPI)NonAf (>60 ml/min/1.73 sqM) Glucose (74-99) mg/dL Plasma Lactic Acid [place] (0.7-2.0) mmol/L Calcium (8.4-10.2) mg/dL Total Bilirubin (0.2-1.3) mg/dL AST (14-36) U/L ALT (4-34) U/L Alkaline Phosphatase (38-126) U/L Total Protein (6.3-8.2) g/dL Albumin (3.5-5.0) g/dL Lipase (23-300) U/L Urine Color Yellow Urine Appearance Turbid H (Clear) Urine pH 8.0 (5.0-8.0) Ur Specific [place] 1.023 (1.001-1.035) Urine Protein Trace H (Negative) Urine Glucose (UA) Negative (Negative) Urine Ketones Negative (Negative) Urine Blood Small H (Negative) Urine Nitrite Negative (Negative) Urine Bilirubin Negative (Negative) Urine Urobilinogen 2.0 (<2.0) mg/dL Ur Leukocyte Esterase Negative (Negative) Urine RBC 4 (0-5) /hpf Urine WBC 1 (0-5) /hpf Ur Squamous Epith Cells 2 (0-4) /hpf Amorphous Sediment Rare H (None) /hpf Urine Mucus Rare H (None) /hpf Urine HCG, Qual Not Detected (Not Detectd) 08/17/20 08/17/20 Range/Units 02:25 02:25 WBC (3.8-10.6) k/uL RBC (3.80-5.40) m/uL Hgb (11.4-16.0) gm/dL Hct (34.0-46.0) % MCV (80.0-100.0) fL MCH (25.0-35.0) pg MCHC (31.0-37.0) g/dL RDW (11.5-15.5) % Plt Count (150-450) k/uL MPV Neutrophils % % Lymphocytes % % Monocytes % % Eosinophils % % Basophils % % Neutrophils # (1.3-7.7) k/uL Lymphocytes # (1.0-4.8) k/uL Monocytes # (0-1.0) k/uL Eosinophils # (0-0.7) k/uL Basophils # (0-0.2) k/uL Sodium 139 (137-145) mmol/L Potassium 3.9 (3.5-5.1) mmol/L Chloride 103 (98-107) mmol/L Carbon Dioxide 28 (22-30) mmol/L Anion Gap 8 mmol/L BUN 11 (7-17) mg/dL Creatinine 0.81 (0.52-1.04) mg/dL Est GFR (CKD-EPI)AfAm >90 (>60 ml/min/1.73 sqM) Est GFR (CKD-EPI)NonAf >90 (>60 ml/min/1.73 sqM) Glucose 102 H (74-99) mg/dL Plasma Lactic Acid [place] 0.9 (0.7-2.0) mmol/L Calcium 9.5 (8.4-10.2) mg/dL Total Bilirubin 0.8 (0.2-1.3) mg/dL AST 26 (14-36) U/L ALT 22 (4-34) U/L Alkaline Phosphatase 53 (38-126) U/L Total Protein 7.1 (6.3-8.2) g/dL Albumin 4.4 (3.5-5.0) g/dL Lipase 113 (23-300) U/L Urine Color Urine Appearance (Clear) Urine pH (5.0-8.0) Ur Specific [place] (1.001-1.035) Urine Protein (Negative) Urine Glucose (UA) (Negative) Urine Ketones (Negative) Urine Blood (Negative) Urine Nitrite (Negative) Urine Bilirubin (Negative) Urine Urobilinogen (<2.0) mg/dL Ur Leukocyte Esterase (Negative) Urine RBC (0-5) /hpf Urine WBC (0-5) /hpf Ur Squamous Epith Cells (0-4) /hpf Amorphous Sediment (None) /hpf Urine Mucus (None) /hpf Urine HCG, Qual (Not Detectd) Disposition <Nena Gruber - Last Filed: 08/17/20 02:21> Is patient prescribed a controlled substance at d/c from ED?: No <Pavel Russell - Last Filed: 08/17/20 04:46> Clinical Impression: Right ovarian cyst, Abdominal pain Disposition: HOME SELF-CARE Condition: Good Instructions (If sedation given, give patient instructions): Ovarian Cyst (ED) Referrals: Cesar Joy MD [Primary Care Provider] - 1-2 days
[2020-08-17 02:57] LABS: Basophils # (A) 0.1 k/uL (0-0.2); Basophils % (A) 1 %; Eosinophils # (A) 0.2 k/uL (0-0.7); Eosinophils % (A) 2 %; HCT 42.1 % (34.0-46.0); HGB 14.1 gm/dL (11.4-16.0); Lymphocytes # (A) 3.5 k/uL (1.0-4.8); Lymphocytes % (A) 29 %; MCHC 33.4 g/dL (31.0-37.0); MCV 86.9 fL (80.0-100.0); Mean Platelet Volume 7.1; Monocytes # (A) 0.7 k/uL (0-1.0); Monocytes % (A) 6 %; Neutrophils # (A) 7.6 k/uL (1.3-7.7); Neutrophils % (A) 62 %; Platelet Count 247 k/uL (150-450); RBC 4.84 m/uL (3.80-5.40); RDW 12.6 % (11.5-15.5); WBC 12.2 k/uL (3.8-10.6)
[2020-08-17 03:01] LABS: Amorphous Sediment,Urine Rare /hpf; Appearance,Urine Turbid (Clear); Bilirubin,Urine Negative (Negative); Blood,Urine Small (Negative); Color,Urine Yellow; Glucose,Urine (UA) Negative (Negative); Ketones,Urine Negative (Negative); Leukocyte Esterase,Urine Negative (Negative); Mucus,Urine Rare /hpf; Nitrite,Urine Negative (Negative); Protein,Urine Trace (Negative); RBC,Urine 4 /hpf (0-5); Specific Gravity,Urine 1.023 (1.001-1.035); Squamous Epithelial Cell,Urine 2 /hpf (0-4); WBC,Urine 1 /hpf (0-5)
--- NOTE | 2020-08-17 03:08 | CT ---
EXAM: CT Abdomen and Pelvis With Intravenous Contrast CLINICAL HISTORY: ITS.REASON CT Reason: RLQ pain TECHNIQUE: Axial computed tomography images of the abdomen and pelvis with intravenous contrast. CTDI is 15.67 mGy and DLP is 684.1 mGy-cm. This CT exam was performed using one or more of the following dose reduction techniques: automated exposure control, adjustment of the mA and/or kV according to patient size, and/or use of iterative reconstruction technique. COMPARISON: No previous study. FINDINGS: Lung bases: Unremarkable. No mass. No consolidation. Pleural space: No pleural effusions. Heart: Heart is normal in size. ABDOMEN: Liver: Fatty liver. The liver and the spleen enhance uniformly. Gallbladder and bile ducts: See below. Pancreas: See below. Spleen: See above. Adrenals: The adrenal glands, the head, body, tail of the pancreas, and the gallbladder are unremarkable. Both kidneys are shown to excrete contrast bilaterally. Kidneys and ureters: See above. Stomach and bowel: Dilated loops of small bowel in the left hypogastrium best seen on coronal image 27 with thickened soto. Differential etiologies include partial bowel obstruction versus focal enteritis. Small bowel follow-through is suggested for further assessment. Moderate quantity of stool throughout the colon. Diverticulosis without diverticulitis. PELVIS: Appendix: Appendix is seen on coronal image 32 and is unremarkable. Bladder: Bladder is underdistended. Reproductive: There is enlargement of the right ovary which contains a 4.4 x 3.2 cm complex cyst within it. Bilateral tubal ligations. ABDOMEN and PELVIS: Intraperitoneal space: Unremarkable. No free air. No significant fluid collection. Bones/joints: No spondylolysis. No acute fracture. No dislocation. Soft tissues: Ischiorectal fat is clean. Vasculature: Flow is demonstrated within the celiac, SMA, the renal arteries, and CRIS. No abdominal aortic aneurysm. Lymph nodes: No retroperitoneal lymphadenopathy. IMPRESSION: 1. The appendix is unremarkable. 2. Within the left upper quadrant dilated fluid-filled loops of small bowel are noted which are fluid-filled worrisome for focal early enteritis versus partial small bowel obstruction. If there is concern for partial small bowel obstruction, small bowel follow-through should be performed. Clinical correlation is necessary. 3. Fatty liver. 4. Gallbladder is unremarkable. 5. No renal calculus or hydronephrosis. 6. Enlargement of the right ovary which contains a complex cyst within it. Transvaginal imaging of the pelvis is advised for further evaluation of the right ovary. <MYCVCSECTION> Communications: 08/17/20 03:10 Call Doctor Regarding Above results, called ANNETTE Barrett on 08/17 03:10 (-05:00)
[2020-08-17 03:18] LABS: ALT 22 U/L (4-34); AST 26 U/L (14-36); African American GFR (CKD) >90 (>60 ml/min/1.73 sqM); Albumin 4.4 g/dL (3.5-5.0); Alkaline Phosphatase 53 U/L (38-126); Anion Gap 8 mmol/L; Blood Urea Nitrogen 11 mg/dL (7-17); Calcium 9.5 mg/dL (8.4-10.2); Carbon Dioxide 28 mmol/L (22-30); Chloride 103 mmol/L (98-107); Glucose 102 mg/dL (74-99); Lipase 113 U/L (23-300); Non-African American GFR(CKD) >90 (>60 ml/min/1.73 sqM); Potassium 3.9 mmol/L (3.5-5.1); Sodium 139 mmol/L (137-145); Total Bilirubin 0.8 mg/dL (0.2-1.3); Total Protein 7.1 g/dL (6.3-8.2)
--- NOTE | 2020-08-17 04:34 | US ---
EXAM: US Pelvis Transabdominal Limited, Pelvis Transvaginal and US Duplex Arterial/Venous of the Pelvis CLINICAL HISTORY: ITS.REASON US Reason: Complex cyst right ovary; RLQ pain TECHNIQUE: Real-time limited transabdominal and transvaginal pelvic ultrasound with image documentation. Transvaginal imaging was used for better evaluation of the endometrium and adnexa. Real-time duplex ultrasound scan of the arterial and venous flow of the pelvis with color Doppler flow and spectral waveform analysis. COMPARISON: CT imaging of the abdomen and pelvis performed earlier today. FINDINGS: Uterus/cervix: The uterus measures 7.8 x 4.2 x 4.3 cm. Endometrial stripe measures 0.7 cm. No myometrial mass. Right ovary: Right ovary measures 4.5 x 3.9 x 2.3 cm. 3.1 x 2.1 x 2.8 cm complex right ovarian cyst is noted. Good flow to both ovaries. No torsion. Left ovary: Left ovary measures 2.5 x 2.1 x 2.7 cm. 2.1 cm complex left ovarian cyst. Free fluid: Minimal free fluid within the posterior cul-de-sac. Bladder: Unremarkable as visualized. Wall is normal thickness for degree of distention. IMPRESSION: 1. Complex right ovarian cyst measuring 3.1 cm. At the very least reimaging in 2 months is advised to follow. 2. 2.1 cm complex left ovarian cyst, most likely hemorrhagic cyst. Reimaging in 2 months is advised to follow. 3. If there is a high degree of concern, magnetic resonance imaging of the pelvis can be performed. 4. Flow is demonstrated to both ovaries.
[2020-08-17 05:02] VITALS: BP 99/62; PULSE 76; RESP 16
== END 2020-08-17 05:02 | disposition home or self-care (01) ==
LOC: EC 02:04
DX: N83.201 Unspecified ovarian cyst, right side (principal); F17.200 Nicotine dependence, unspecified, uncomplicated; Z88.5 Allergy status to narcotic agent; Z91.030 Bee allergy status; Z91.040 Latex allergy status; Z98.51 Tubal ligation status
CPT/HCPCS: 36415; 80053; 83605; 83690; 85025; 81001; 81025; 93975; 76830; 74177; 99284; 96374; 96375; 96361; J2270; J2405; Q9967

== ENCOUNTER 2020-08-30 14:10 | Emergency (ER) | payer OTHER ==
[2020-08-30 14:15] VITALS: TEMP 99.5
[2020-08-30 14:43] VITALS: RESP 18
[2020-08-30] MEDS ORDERED: SODIUM CHLORIDE 0.9% 1,000 ML IV STA (15:06)
--- NOTE | 2020-08-30 15:18 | ED ---
GI Bleed HPI - General Chief complaint: GI Bleed Stated complaint: Rectal Bleeding Time Seen by Provider: 08/30/20 14:58 Source: patient Mode of arrival: ambulatory Limitations: no limitations - History of Present Illness Initial comments: 25 year-old female patient presents to the emergency department today for evaluation of rectal bleeding. Patient states yesterday she had a small amount of blood in her stool. States today she had a bowel movement that seemed to be completely blood. States she is having a discomfort to the lower abdomen. Denies any nausea or vomiting. Denies history of GI bleed. She was evaluated a couple weeks ago for lower abdominal pain was diagnosed with ovarian cysts and enteritis. She denies having any diarrhea leading up to this. Denies fever or chills. She states she does have a family history of colorectal cancer. Denies family history of inflammatory bowel disease. Denies any medication use including blood thinning medications. Patient denies any recent rash, cough, shortness of breath, chest pain, numbness, tingling, dizziness, weakness, hematuria, dysuria, urinary urgency, urinary frequency, headache, visual changes, or any other complaints. - Related Data Home Medications Medication Instructions Recorded Confirmed Vitamin C/Biotin [Hair, Skin and 1 tab PO DAILY 08/30/20 08/30/20 Nails] Allergies Allergy/AdvReac Type Severity Reaction Status Date / Time morphine Allergy Unknown Verified 08/30/20 15:57 venom-honey bee Allergy Anaphylaxis Verified 08/30/20 15:57 [bee venom (honey bee)] codeine AdvReac Severe Nausea & Verified 08/30/20 15:57 Vomiting latex AdvReac Rash/Hives Verified 08/30/20 15:57 Review of Systems ROS Statement: Those systems with pertinent positive or pertinent negative responses have been documented in the HPI. ROS Other: All systems not noted in ROS Statement are negative. Past Medical History Past Medical History: Asthma, COPD, GERD/Reflux Additional Past Medical History / Comment(s): vertigo, gallblader dysfunction, back pain History of Any Multi-Drug Resistant Organisms: None Reported Past Surgical History: Tubal Ligation Additional Past Surgical History / Comment(s): 07-27-2014 had scope done with dr an with inflammation Past Anesthesia/Blood Transfusion Reactions: Motion Sickness Past Psychological History: Anxiety, Depression Smoking Status: Current every day smoker Past Alcohol Use History: Occasional Past Drug Use History: None Reported - Past Family History Father Family Medical History: Deep Vein Thrombosis (DVT) Mother Family Medical History: Asthma, COPD Additional Family Medical History / Comment(s): insomnia, hypoglycemia, severe yuryzfuwm-zbzl-zwwvwz Sister(s) Additional Family Medical History / Comment(s): hypoglycemia General Exam Limitations: no limitations General appearance: alert, in no apparent distress, other (This is a well- developed, well-nourished adult female patient in no acute distress.) Respiratory exam: Present: normal lung sounds bilaterally. Absent: respiratory distress, wheezes, rales, rhonchi, stridor Cardiovascular Exam: Present: regular rate, normal rhythm, normal heart sounds. Absent: systolic murmur, diastolic murmur, rubs, gallop, clicks GI/Abdominal exam: Present: soft, tenderness (generalized tenderness), normal bowel sounds. Absent: distended, guarding, rebound, rigid Neurological exam: Present: alert, oriented X3, CN II-XII intact Psychiatric exam: Present: normal affect, normal mood Skin exam: Present: warm, dry, intact, normal color. Absent: rash Course Vital Signs 08/30/20 08/30/20 08/30/20 14:11 14:42 15:31 Temperature 99.5 F Pulse Rate 83 71 62 Respiratory 20 18 18 Rate Blood Pressure 121/74 117/79 112/67 O2 Sat by Pulse 98 99 99 Oximetry 08/30/20 16:29 Temperature Pulse Rate 75 Respiratory 18 Rate Blood Pressure 96/63 O2 Sat by Pulse 98 Oximetry Medical Decision Making - Medical Decision Making 25 old female patient presents to the emergency department today for evaluation of GI bleed. States she had a bowel movement yesterday with a small amount of bright red blood present. States today she had a larger amount of blood so presented here for further evaluation. She did have computed tomography scan a couple weeks ago the did show possible enteritis. She denies any diarrhea. Abdomen soft and nontender. Labs reviewed and were unremarkable. She'll be discharged follow-up with GI specialist for further evaluation and possible colonoscopy. Return parameters were discussed in detail. She verbalizes understanding and agrees with this plan. Case discussed with my attending Dr. Sotelo. - Lab Data Result diagrams: 08/30/20 15:08 08/30/20 15:08 Lab Results 08/30/20 08/30/20 08/30/20 Range/Units 15:07 15:07 15:08 WBC 10.3 (3.8-10.6) k/uL RBC 5.18 (3.80-5.40) m/uL Hgb 15.5 (11.4-16.0) gm/dL Hct 45.4 (34.0-46.0) % MCV 87.6 (80.0-100.0) fL MCH 29.9 (25.0-35.0) pg MCHC 34.2 (31.0-37.0) g/dL RDW 12.2 (11.5-15.5) % Plt Count 260 (150-450) k/uL MPV 6.9 Neutrophils % 64 % Lymphocytes % 27 % Monocytes % 6 % Eosinophils % 2 % Basophils % 1 % Neutrophils # 6.5 (1.3-7.7) k/uL Lymphocytes # 2.8 (1.0-4.8) k/uL Monocytes # 0.6 (0-1.0) k/uL Eosinophils # 0.2 (0-0.7) k/uL Basophils # 0.1 (0-0.2) k/uL APTT (22.0-30.0) sec Sodium (137-145) mmol/L Potassium (3.5-5.1) mmol/L Chloride (98-107) mmol/L Carbon Dioxide (22-30) mmol/L Anion Gap mmol/L BUN (7-17) mg/dL Creatinine (0.52-1.04) mg/dL Est GFR (CKD-EPI)AfAm (>60 ml/min/1.73 sqM) Est GFR (CKD-EPI)NonAf (>60 ml/min/1.73 sqM) Glucose (74-99) mg/dL Calcium (8.4-10.2) mg/dL Total Bilirubin (0.2-1.3) mg/dL AST (14-36) U/L ALT (4-34) U/L Alkaline Phosphatase (38-126) U/L Troponin I (0.000-0.034) ng/mL Total Protein (6.3-8.2) g/dL Albumin (3.5-5.0) g/dL Urine Color Colorless Urine Appearance Clear (Clear) Urine pH 6.5 (5.0-8.0) Ur Specific [place] 1.008 (1.001-1.035) Urine Protein Negative (Negative) Urine Glucose (UA) Negative (Negative) Urine Ketones Negative (Negative) Urine Blood Small H (Negative) Urine Nitrite Negative (Negative) Urine Bilirubin Negative (Negative) Urine Urobilinogen <2.0 (<2.0) mg/dL Ur Leukocyte Esterase Small H (Negative) Urine RBC 1 (0-5) /hpf Urine WBC 1 (0-5) /hpf Ur Squamous Epith Cells 1 (0-4) /hpf Urine Bacteria Occasional H (None) /hpf Urine Mucus Rare H (None) /hpf Urine HCG, Qual Not Detected (Not Detectd) 08/30/20 08/30/20 08/30/20 Range/Units 15:08 15:08 15:08 WBC (3.8-10.6) k/uL RBC (3.80-5.40) m/uL Hgb (11.4-16.0) gm/dL Hct (34.0-46.0) % MCV (80.0-100.0) fL MCH (25.0-35.0) pg MCHC (31.0-37.0) g/dL RDW (11.5-15.5) % Plt Count (150-450) k/uL MPV Neutrophils % % Lymphocytes % % Monocytes % % Eosinophils % % Basophils % % Neutrophils # (1.3-7.7) k/uL Lymphocytes # (1.0-4.8) k/uL Monocytes # (0-1.0) k/uL Eosinophils # (0-0.7) k/uL Basophils # (0-0.2) k/uL APTT 24.1 (22.0-30.0) sec Sodium 139 (137-145) mmol/L Potassium 4.1 (3.5-5.1) mmol/L Chloride 102 (98-107) mmol/L Carbon Dioxide 27 (22-30) mmol/L Anion Gap 10 mmol/L BUN 11 (7-17) mg/dL Creatinine 0.56 (0.52-1.04) mg/dL Est GFR (CKD-EPI)AfAm >90 (>60 ml/min/1.73 sqM) Est GFR (CKD-EPI)NonAf >90 (>60 ml/min/1.73 sqM) Glucose 94 (74-99) mg/dL Calcium 9.7 (8.4-10.2) mg/dL Total Bilirubin 0.8 (0.2-1.3) mg/dL AST 27 (14-36) U/L ALT 31 (4-34) U/L Alkaline Phosphatase 62 (38-126) U/L Troponin I <0.012 (0.000-0.034) ng/mL Total Protein 8.0 (6.3-8.2) g/dL Albumin 4.8 (3.5-5.0) g/dL Urine Color Urine Appearance (Clear) Urine pH (5.0-8.0) Ur Specific [place] (1.001-1.035) Urine Protein (Negative) Urine Glucose (UA) (Negative) Urine Ketones (Negative) Urine Blood (Negative) Urine Nitrite (Negative) Urine Bilirubin (Negative) Urine Urobilinogen (<2.0) mg/dL Ur Leukocyte Esterase (Negative) Urine RBC (0-5) /hpf Urine WBC (0-5) /hpf Ur Squamous Epith Cells (0-4) /hpf Urine Bacteria (None) /hpf Urine Mucus (None) /hpf Urine HCG, Qual (Not Detectd) Disposition Clinical Impression: GI bleed Disposition: HOME SELF-CARE Condition: Good Instructions (If sedation given, give patient instructions): Gastrointestinal Bleeding (ED) Additional Instructions: Follow-up with gastrointestinal specialist as soon as possible. Call Wednesday morning for an appointment. Follow-up through primary care physician for recheck in 1-2 days. Return to the emergency department for any new, worsening, or concerning symptoms. Is patient prescribed a controlled substance at d/c from ED?: No Referrals: Cesar Joy MD [Primary Care Provider] - 1-2 days Ravi Calvo MD [STAFF PHYSICIAN] - 1-2 days Time of Disposition: 16:46
[2020-08-30 15:30] LABS: Basophils # (A) 0.1 k/uL (0-0.2); Basophils % (A) 1 %; Eosinophils # (A) 0.2 k/uL (0-0.7); Eosinophils % (A) 2 %; HCT 45.4 % (34.0-46.0); HGB 15.5 gm/dL (11.4-16.0); Lymphocytes # (A) 2.8 k/uL (1.0-4.8); Lymphocytes % (A) 27 %; MCH 29.9 pg (25.0-35.0); MCHC 34.2 g/dL (31.0-37.0); MCV 87.6 fL (80.0-100.0); Mean Platelet Volume 6.9; Monocytes # (A) 0.6 k/uL (0-1.0); Monocytes % (A) 6 %; Neutrophils # (A) 6.5 k/uL (1.3-7.7); Neutrophils % (A) 64 %; Platelet Count 260 k/uL (150-450); RBC 5.18 m/uL (3.80-5.40); RDW 12.2 % (11.5-15.5); WBC 10.3 k/uL (3.8-10.6)
[2020-08-30 15:37] LABS: Appearance,Urine Clear (Clear); Bacteria,Urine Occasional /hpf; Bilirubin,Urine Negative (Negative); Blood,Urine Small (Negative); Color,Urine Colorless; Glucose,Urine (UA) Negative (Negative); Ketones,Urine Negative (Negative); Leukocyte Esterase,Urine Small (Negative); Mucus,Urine Rare /hpf; Nitrite,Urine Negative (Negative); PH, Urine 6.5 (5.0-8.0); Protein,Urine Negative (Negative); RBC,Urine 1 /hpf (0-5); Specific Gravity,Urine 1.008 (1.001-1.035); Squamous Epithelial Cell,Urine 1 /hpf (0-4); Urobilinogen,Urine <2.0 mg/dL (<2.0); WBC,Urine 1 /hpf (0-5)
[2020-08-30 15:50] LABS: ALT 31 U/L (4-34); AST 27 U/L (14-36); African American GFR (CKD) >90 (>60 ml/min/1.73 sqM); Albumin 4.8 g/dL (3.5-5.0); Alkaline Phosphatase 62 U/L (38-126); Anion Gap 10 mmol/L; Blood Urea Nitrogen 11 mg/dL (7-17); Calcium 9.7 mg/dL (8.4-10.2); Carbon Dioxide 27 mmol/L (22-30); Chloride 102 mmol/L (98-107); Glucose 94 mg/dL (74-99); Non-African American GFR(CKD) >90 (>60 ml/min/1.73 sqM); Potassium 4.1 mmol/L (3.5-5.1); Sodium 139 mmol/L (137-145); Total Bilirubin 0.8 mg/dL (0.2-1.3)
[2020-08-30 16:31] VITALS: BP 96/63; PULSE 75
[2020-08-30] MEDS ORDERED: ACET/COD 300 MG/30 MG STARTER PACK 6 TAB BTL PO STA (16:46)
[2020-08-30] MEDS ORDERED: ONDANSETRON 4 MG ODT STARTER PACK 2 TAB BTL PO STA (16:47)
== END 2020-08-30 16:56 | disposition home or self-care (01) ==
LOC: EC 14:10
DX: K92.2 Gastrointestinal hemorrhage, unspecified (principal); F17.200 Nicotine dependence, unspecified, uncomplicated; Z88.5 Allergy status to narcotic agent; Z91.030 Bee allergy status; Z91.040 Latex allergy status; Z98.51 Tubal ligation status; Z85.048 Personal history of other malignant neoplasm of rectum, rectosigmoid junction, and anus
CPT/HCPCS: 36415; 80053; 84484; 85025; 85730; 81001; 81025; 99284; 96360; S0119

== ENCOUNTER → 2020-09-20 | Outpatient (CLI) | payer OTHER ==
--- NOTE | 2020-09-20 12:35 | US ---
EXAMINATION TYPE: US transvaginal DATE OF EXAM: 09/20/2020 COMPARISON: NONE CLINICAL HISTORY: N83.0 right ovarian cyst. f/u to previous TECHNIQUE: Transvaginal (TV). EXAM MEASUREMENTS: Uterus: 6.5 x 3.7 x 4.5 cm Endometrial Stripe: .5 cm Right Ovary: 2.3 x 1.0 x 1.1 cm Left Ovary: 3.1 x 1.5 x 2.3 cm 1. Uterus: Anteverted wnl 2. Endometrium: Echogenic foci seen 3. Right Ovary: follicles seen. 4. Left Ovary: follicles seen. 5. Bilateral Adnexa: wnl 6. Posterior cul-de-sac: wnl IMPRESSION: 1. Follicles in bilateral ovaries. 2. Previous ovarian cysts are not evident.
== END ==
LOC: RADUSWWP 10:31
PROVIDERS: ATTEND Obstetrics & Gynecology
DX: Z09 Encounter for follow-up examination after completed treatment for conditions other than malignant neoplasm (principal); Z87.42 Personal history of other diseases of the female genital tract
CPT/HCPCS: 76830

== ENCOUNTER 2020-12-14 22:01 | Emergency (ER) | payer OTHER ==
[2020-12-14] MEDS ORDERED: KETOROLAC 15 MG/ML 1 ML VIAL IVP STA (22:50)
[2020-12-14] MEDS ORDERED: SODIUM CHLORIDE 0.9% 1,000 ML IV STA ×2 (22:50)
[2020-12-14] MEDS ORDERED: ONDANSETRON 4 MG/2 ML VIAL IVP STA (22:50)
[2020-12-14] MEDS ORDERED: SODIUM CHLORIDE 0.9% 500 ML 500 ML IV STA (22:50)
--- NOTE | 2020-12-14 22:51 | ED ---
Nausea/Vomiting/Diarrhea HPI - General Chief complaint: Nausea/Vomiting/Diarrhea Stated complaint: Nausea,Vomiting since Covid vaccine Time Seen by Provider: 12/14/20 22:45 Source: patient Mode of arrival: wheelchair Limitations: no limitations - Related Data Home Medications Medication Instructions Recorded Confirmed Vitamin C/Biotin [Hair, Skin and 1 tab PO DAILY 08/30/20 08/30/20 Nails] Allergies Allergy/AdvReac Type Severity Reaction Status Date / Time morphine Allergy Unknown Verified 12/14/20 22:43 venom-honey bee Allergy Anaphylaxis Verified 12/14/20 22:43 [bee venom (honey bee)] codeine AdvReac Severe Nausea & Verified 12/14/20 22:43 Vomiting latex AdvReac Rash/Hives Verified 12/14/20 22:43 Review of Systems ROS Statement: Those systems with pertinent positive or pertinent negative responses have been documented in the HPI. ROS Other: All systems not noted in ROS Statement are negative. Past Medical History Past Medical History: Asthma, COPD, GERD/Reflux Additional Past Medical History / Comment(s): vertigo, gallblader dysfunction, back pain History of Any Multi-Drug Resistant Organisms: None Reported Past Surgical History: Tubal Ligation Additional Past Surgical History / Comment(s): 07-27-2014 had scope done with dr an with inflammation Past Anesthesia/Blood Transfusion Reactions: Motion Sickness Past Psychological History: Anxiety, Depression Smoking Status: Current every day smoker Past Alcohol Use History: Occasional Past Drug Use History: None Reported - Past Family History Father Family Medical History: Deep Vein Thrombosis (DVT) Mother Family Medical History: Asthma, COPD Additional Family Medical History / Comment(s): insomnia, hypoglycemia, severe loqhtryyx-vafz-pdskdf Sister(s) Additional Family Medical History / Comment(s): hypoglycemia General Exam Limitations: no limitations Course Vital Signs 12/14/20 12/14/20 22:40 23:51 Temperature 99.9 F H 99.1 F Pulse Rate 95 70 Respiratory 20 16 Rate Blood Pressure 106/58 101/52 O2 Sat by Pulse 99 98 Oximetry Medical Decision Making - Lab Data Result diagrams: 12/14/20 23:05 12/14/20 23:05 Lab Results 12/14/20 12/14/20 12/14/20 Range/Units 23:05 23:05 23:05 WBC 9.2 (3.8-10.6) k/uL RBC 4.82 (3.80-5.40) m/uL Hgb 14.5 (11.4-16.0) gm/dL Hct 41.3 (34.0-46.0) % MCV 85.7 (80.0-100.0) fL MCH 30.2 (25.0-35.0) pg MCHC 35.2 (31.0-37.0) g/dL RDW 12.2 (11.5-15.5) % Plt Count 190 (150-450) k/uL MPV 7.1 Neutrophils % 73 % Lymphocytes % 16 % Monocytes % 8 % Eosinophils % 2 % Basophils % 1 % Neutrophils # 6.7 (1.3-7.7) k/uL Lymphocytes # 1.5 (1.0-4.8) k/uL Monocytes # 0.7 (0-1.0) k/uL Eosinophils # 0.1 (0-0.7) k/uL Basophils # 0.1 (0-0.2) k/uL Sodium 137 (137-145) mmol/L Potassium 4.0 (3.5-5.1) mmol/L Chloride 101 (98-107) mmol/L Carbon Dioxide 26 (22-30) mmol/L Anion Gap 10 mmol/L BUN 14 (7-17) mg/dL Creatinine 0.71 (0.52-1.04) mg/dL Est GFR (CKD-EPI)AfAm >90 (>60 ml/min/1.73 sqM) Est GFR (CKD-EPI)NonAf >90 (>60 ml/min/1.73 sqM) Glucose 81 (74-99) mg/dL Calcium 9.6 (8.4-10.2) mg/dL Phosphorus 2.8 (2.5-4.5) mg/dL Magnesium 2.1 (1.6-2.3) mg/dL Total Bilirubin 1.2 (0.2-1.3) mg/dL AST 26 (14-36) U/L ALT 25 (4-34) U/L Alkaline Phosphatase 70 (38-126) U/L Creatine Kinase 63 (30-135) U/L Troponin I (0.000-0.034) ng/mL Total Protein 7.4 (6.3-8.2) g/dL Albumin 4.5 (3.5-5.0) g/dL Urine Color Yellow Urine Appearance Clear (Clear) Urine pH 8.0 (5.0-8.0) Ur Specific [place] 1.008 (1.001-1.035) Urine Protein 1+ H (Negative) Urine Glucose (UA) Negative (Negative) Urine Ketones Negative (Negative) Urine Blood Large H (Negative) Urine Nitrite Negative (Negative) Urine Bilirubin Negative (Negative) Urine Urobilinogen <2.0 (<2.0) mg/dL Ur Leukocyte Esterase Negative (Negative) Urine RBC >182 H (0-5) /hpf Urine WBC 2 (0-5) /hpf Ur Squamous Epith Cells <1 (0-4) /hpf Urine Bacteria Rare H (None) /hpf 12/14/20 Range/Units 23:05 WBC (3.8-10.6) k/uL RBC (3.80-5.40) m/uL Hgb (11.4-16.0) gm/dL Hct (34.0-46.0) % MCV (80.0-100.0) fL MCH (25.0-35.0) pg MCHC (31.0-37.0) g/dL RDW (11.5-15.5) % Plt Count (150-450) k/uL MPV Neutrophils % % Lymphocytes % % Monocytes % % Eosinophils % % Basophils % % Neutrophils # (1.3-7.7) k/uL Lymphocytes # (1.0-4.8) k/uL Monocytes # (0-1.0) k/uL Eosinophils # (0-0.7) k/uL Basophils # (0-0.2) k/uL Sodium (137-145) mmol/L Potassium (3.5-5.1) mmol/L Chloride (98-107) mmol/L Carbon Dioxide (22-30) mmol/L Anion Gap mmol/L BUN (7-17) mg/dL Creatinine (0.52-1.04) mg/dL Est GFR (CKD-EPI)AfAm (>60 ml/min/1.73 sqM) Est GFR (CKD-EPI)NonAf (>60 ml/min/1.73 sqM) Glucose (74-99) mg/dL Calcium (8.4-10.2) mg/dL Phosphorus (2.5-4.5) mg/dL Magnesium (1.6-2.3) mg/dL Total Bilirubin (0.2-1.3) mg/dL AST (14-36) U/L ALT (4-34) U/L Alkaline Phosphatase (38-126) U/L Creatine Kinase (30-135) U/L Troponin I <0.012 (0.000-0.034) ng/mL Total Protein (6.3-8.2) g/dL Albumin (3.5-5.0) g/dL Urine Color Urine Appearance (Clear) Urine pH (5.0-8.0) Ur Specific [place] (1.001-1.035) Urine Protein (Negative) Urine Glucose (UA) (Negative) Urine Ketones (Negative) Urine Blood (Negative) Urine Nitrite (Negative) Urine Bilirubin (Negative) Urine Urobilinogen (<2.0) mg/dL Ur Leukocyte Esterase (Negative) Urine RBC (0-5) /hpf Urine WBC (0-5) /hpf Ur Squamous Epith Cells (0-4) /hpf Urine Bacteria (None) /hpf Disposition Clinical Impression: Nausea & vomiting, Dehydration Disposition: HOME SELF-CARE Condition: Good Instructions (If sedation given, give patient instructions): Acute Nausea and Vomiting (ED) Is patient prescribed a controlled substance at d/c from ED?: No Referrals: Cesar Joy MD [Primary Care Provider] - 1-2 days
[2020-12-14] MEDS ORDERED: ACETAMINOPHEN IV (For NPO) 1,000 MG in EMPTY BAG 1 BAG IVPB ONE (23:00)
[2020-12-14 23:26] LABS: Basophils # (A) 0.1 k/uL (0-0.2); Basophils % (A) 1 %; Eosinophils # (A) 0.1 k/uL (0-0.7); Eosinophils % (A) 2 %; HCT 41.3 % (34.0-46.0); HGB 14.5 gm/dL (11.4-16.0); Lymphocytes # (A) 1.5 k/uL (1.0-4.8); Lymphocytes % (A) 16 %; MCH 30.2 pg (25.0-35.0); MCHC 35.2 g/dL (31.0-37.0); MCV 85.7 fL (80.0-100.0); Mean Platelet Volume 7.1; Monocytes # (A) 0.7 k/uL (0-1.0); Monocytes % (A) 8 %; Neutrophils # (A) 6.7 k/uL (1.3-7.7); Neutrophils % (A) 73 %; Platelet Count 190 k/uL (150-450); RBC 4.82 m/uL (3.80-5.40); RDW 12.2 % (11.5-15.5); WBC 9.2 k/uL (3.8-10.6)
[2020-12-14 23:40] LABS: Appearance,Urine Clear (Clear); Bacteria,Urine Rare /hpf; Bilirubin,Urine Negative (Negative); Blood,Urine Large (Negative); Color,Urine Yellow; Glucose,Urine (UA) Negative (Negative); Ketones,Urine Negative (Negative); Leukocyte Esterase,Urine Negative (Negative); Nitrite,Urine Negative (Negative); Protein,Urine 1+ (Negative); RBC,Urine >182 /hpf (0-5); Specific Gravity,Urine 1.008 (1.001-1.035); Squamous Epithelial Cell,Urine <1 /hpf (0-4); Urobilinogen,Urine <2.0 mg/dL (<2.0); WBC,Urine 2 /hpf (0-5)
[2020-12-14 23:43] LABS: ALT 25 U/L (4-34); AST 26 U/L (14-36); African American GFR (CKD) >90 (>60 ml/min/1.73 sqM); Albumin 4.5 g/dL (3.5-5.0); Alkaline Phosphatase 70 U/L (38-126); Anion Gap 10 mmol/L; Blood Urea Nitrogen 14 mg/dL (7-17); Calcium 9.6 mg/dL (8.4-10.2); Carbon Dioxide 26 mmol/L (22-30); Chloride 101 mmol/L (98-107); Creatine Kinase 63 U/L (30-135); Glucose 81 mg/dL (74-99); Magnesium 2.1 mg/dL (1.6-2.3); Non-African American GFR(CKD) >90 (>60 ml/min/1.73 sqM); Phosphorus 2.8 mg/dL (2.5-4.5); Sodium 137 mmol/L (137-145); Total Bilirubin 1.2 mg/dL (0.2-1.3); Total Protein 7.4 g/dL (6.3-8.2)
[2020-12-14 23:55] VITALS: BP 101/52; PULSE 70; RESP 16; TEMP 99.1
[2020-12-15] MEDS ORDERED: ONDANSETRON 4 MG ODT STARTER PACK 2 TAB BTL PO STA (00:21)
== END 2020-12-15 00:48 | disposition home or self-care (01) ==
LOC: EC 22:01
DX: E86.0 Dehydration (principal); R11.2 Nausea with vomiting, unspecified; J44.9 Chronic obstructive pulmonary disease, unspecified; K21.9 Gastro-esophageal reflux disease without esophagitis; F17.200 Nicotine dependence, unspecified, uncomplicated
CPT/HCPCS: 36415; 80053; 82550; 83735; 84100; 84484; 85025; 81001; 99284; 96374; 96375; 96376; 96361 ×2; J2405; J0131; J1885; S0119

== ENCOUNTER → 2021-01-27 | Outpatient (CLI) | payer OTHER ==
--- NOTE | 2021-01-27 11:31 | USB ---
Reason for exam: clinical finding. History: Family history of breast cancer in maternal grandmother. Indicated problem(s): pain in the left breast. Physical Findings: Nurse did not find any significant physical abnormalities on exam. US Breast Limited LT Left limited breast ultrasound including focal area of concern, retroareolar and axilla demonstrates no cystic or solid lesion seen. These results were verbally communicated with the patient and result sheet given to the patient on 01/27/21. ASSESSMENT: Negative, BI-RAD 1 RECOMMENDATION: Routine screening mammogram of both breasts at age 39. Manage patient on a clinical basis. Mammography per ACS guidelines.
== END | disposition home or self-care (01) ==
LOC: RADMAMWWP 09:40
PROVIDERS: ATTEND Family Medicine
DX: N64.4 Mastodynia (principal); Z80.3 Family history of malignant neoplasm of breast

== ENCOUNTER 2021-07-14 13:42 | Emergency (ER) | payer OTHER ==
[2021-07-14 16:01] VITALS: RESP 18
[2021-07-14] MEDS ORDERED: ACETAMINOPHEN TAB 325 MG TAB PO STA (16:41)
[2021-07-14] MEDS ORDERED: IBUPROFEN 600 MG TAB PO STA (16:41)
--- NOTE | 2021-07-14 16:44 | ED ---
URI HPI - General Chief Complaint: Upper Respiratory Infection Stated Complaint: COVID TEST Time Seen by Provider: 07/14/21 16:03 Source: patient, RN notes reviewed Mode of arrival: ambulatory Limitations: no limitations - History of Present Illness Initial Comments: Patient is a [age] female that presents to the emergency department complaining of upper respiratory tract symptoms and a sore throat times one. She notes she has mild fever but did not take anything prior to arrival. Patient can emergency room to get tested for Covid. She denied any chest pain shortness breath headache nausea vomiting diarrhea constipation fatigue chills. - Related Data Home Medications Medication Instructions Recorded Confirmed Vitamin C/Biotin [Hair, Skin and 1 tab PO DAILY 08/30/20 08/30/20 Nails] Allergies Allergy/AdvReac Type Severity Reaction Status Date / Time morphine Allergy Unknown Verified 07/14/21 16:01 venom-honey bee Allergy Anaphylaxis Verified 07/14/21 16:01 [bee venom (honey bee)] codeine AdvReac Severe Nausea & Verified 07/14/21 16:01 Vomiting latex AdvReac Rash/Hives Verified 07/14/21 16:01 Review of Systems ROS Statement: Those systems with pertinent positive or pertinent negative responses have been documented in the HPI. ROS Other: All systems not noted in ROS Statement are negative. Past Medical History Past Medical History: Asthma, COPD, GERD/Reflux Additional Past Medical History / Comment(s): vertigo, gallblader dysfunction, back pain History of Any Multi-Drug Resistant Organisms: None Reported Past Surgical History: Tubal Ligation Additional Past Surgical History / Comment(s): 07-27-2014 had scope done with dr palumbo-ibis with inflammation Past Anesthesia/Blood Transfusion Reactions: Motion Sickness Past Psychological History: Anxiety, Bipolar, Depression, PTSD Smoking Status: Current every day smoker, V[employer] Past Alcohol Use History: Occasional Past Drug Use History: None Reported - Past Family History Father Family Medical History: Deep Vein Thrombosis (DVT) Mother Family Medical History: Asthma, COPD Additional Family Medical History / Comment(s): insomnia, hypoglycemia, severe uzkcodxli-sywk-tehsng Sister(s) Additional Family Medical History / Comment(s): hypoglycemia General Exam Limitations: no limitations General appearance: alert, in no apparent distress Head exam: Present: atraumatic, normocephalic, normal inspection Eye exam: Present: normal appearance, PERRL, EOMI. Absent: scleral icterus, conjunctival injection, periorbital swelling ENT exam: Present: normal exam, mucous membranes moist. Absent: normal oropharynx (Mildly erythematous) Neck exam: Present: normal inspection Respiratory exam: Present: normal lung sounds bilaterally. Absent: respiratory distress, wheezes, rales, rhonchi, stridor Cardiovascular Exam: Present: regular rate, normal rhythm, normal heart sounds. Absent: systolic murmur, diastolic murmur, rubs, gallop, clicks Extremities exam: Present: normal inspection, full ROM, normal capillary refill. Absent: tenderness, pedal edema, joint swelling, calf tenderness Neurological exam: Present: alert, oriented X3 Psychiatric exam: Present: normal affect, normal mood Skin exam: Present: warm, dry, intact, normal color. Absent: rash Course Vital Signs 07/14/21 07/14/21 15:54 16:15 Temperature 100.1 F H Pulse Rate 72 Respiratory 18 18 Rate O2 Sat by Pulse 98 Oximetry Medical Decision Making - Medical Decision Making 26-year-old female with upper respiratory tract symptoms for one. Covid test, 600 mg of Motrin, 650 mg of Tylenol ordered. Covid test negative. Patient most likely has a pharyngitis. Case discussed with Dr. Kitchen. - Lab Data Lab Results 07/14/21 Range/Units 16:01 Coronavirus (PCR) Not Detected (Not Detectd) Disposition Clinical Impression: Pharyngitis, Acute upper respiratory infection Disposition: HOME SELF-CARE Condition: Stable Instructions (If sedation given, give patient instructions): Upper Respiratory Infection (ED) Additional Instructions: Please return to the Emergency Department if symptoms worsen or any other concerns. Follow-up with primary care in 1-2 days. Take Tylenol Motrin alternating every 3 hours as needed for fever aches and pains. Is patient prescribed a controlled substance at d/c from ED?: No Referrals: Raquel Rocha MD [Primary Care Provider] - 1-2 days Time of Disposition: 16:44
[2021-07-14 17:20] VITALS: BP 110/66; PULSE 74; TEMP 98.3
== END 2021-07-14 17:21 | disposition home or self-care (01) ==
LOC: EC 13:42
DX: J06.9 Acute upper respiratory infection, unspecified (principal); J02.9 Acute pharyngitis, unspecified; Z20.822 Contact with and (suspected) exposure to COVID-19; J44.9 Chronic obstructive pulmonary disease, unspecified; F17.200 Nicotine dependence, unspecified, uncomplicated
CPT/HCPCS: 87635; 99283

== ENCOUNTER 2022-02-08 03:46 | Emergency (ER) | payer BC, OTHER ==
[2022-02-08 04:04] VITALS: RESP 16; TEMP 98.8
[2022-02-08] MEDS ORDERED: ACETAMINOPHEN TAB 325 MG TAB PO STA (04:26)
[2022-02-08] MEDS ORDERED: diphenhydrAMINE 50 MG/ML 1 ML VIAL IM STA (06:22)
[2022-02-08] MEDS ORDERED: BENZTROPINE MESYLATE 1 MG TAB PO STA (07:06)
--- NOTE | 2022-02-08 07:52 | ED ---
General Adult HPI <Merrill Jean - Last Filed: 02/08/22 10:24> - General Source: patient Mode of arrival: ambulatory Limitations: no limitations - History of Present Illness Onset/Timin -: hour(s) Location: neck Radiation: non-radiation Quality: aching Consistency: constant Improves with: none Worsens with: movement Associated Symptoms: denies other symptoms <Willie Kahn - Last Filed: 02/08/22 11:55> - General Chief complaint: Recheck/Abnormal Lab/Rx Stated complaint: reaction to meds Time Seen by Provider: 02/08/22 04:51 - History of Present Illness Initial comments: This patient is a 26-year-old woman who presents with complaint that she believes she is having an adverse reaction to Lamictal. Patient states that she took her first dose of that this evening. Following that she is darted noticing that the muscles on the left side of her neck were becoming very tight and now it hurts to turn her neck at all. Patient denies any injury. There is no pain in the bones of the neck. She is not having any difficulty with speech, breathing or swallowing. (Willie Kahn) - Related Data Home Medications Medication Instructions Recorded Confirmed Vitamin C/Biotin [Hair, Skin and 1 tab PO DAILY 08/30/20 08/30/20 Nails] Previous Rx's Medication Instructions Recorded Cyclobenzaprine [Flexeril] 10 mg PO TID #14 tab 02/08/22 Ibuprofen [Motrin] 600 mg PO Q6HR PRN #20 tab 02/08/22 Allergies Allergy/AdvReac Type Severity Reaction Status Date / Time morphine Allergy Unknown Verified 07/14/21 16:01 venom-honey bee Allergy Anaphylaxis Verified 07/14/21 16:01 [bee venom (honey bee)] codeine AdvReac Severe Nausea & Verified 07/14/21 16:01 Vomiting latex AdvReac Rash/Hives Verified 07/14/21 16:01 Review of Systems ROS Other: All systems not noted in ROS Statement are negative. <Merrill Jean - Last Filed: 02/08/22 10:24> ROS Other: All systems not noted in ROS Statement are negative. Constitutional: Denies: fever, chills ENT: Denies: throat pain, congestion Respiratory: Denies: cough, dyspnea Musculoskeletal: Denies: back pain Skin: Denies: rash Neurological: Denies: headache, weakness, numbness, paresthesias <FemiWillie - Last Filed: 02/08/22 11:55> ROS Statement: Those systems with pertinent positive or pertinent negative responses have been documented in the HPI. Past Medical History Past Medical History: Asthma, COPD, GERD/Reflux Additional Past Medical History / Comment(s): vertigo, gallblader dysfunction, back pain History of Any Multi-Drug Resistant Organisms: None Reported Past Surgical History: Tubal Ligation Additional Past Surgical History / Comment(s): 07-27-2014 had scope done with dr an with inflammation Past Anesthesia/Blood Transfusion Reactions: Motion Sickness Past Psychological History: Anxiety, Bipolar, Depression, PTSD Smoking Status: Current every day smoker, Vaper Past Alcohol Use History: Occasional Past Drug Use History: None Reported - Past Family History Father Family Medical History: Deep Vein Thrombosis (DVT) Mother Family Medical History: Asthma, COPD Additional Family Medical History / Comment(s): insomnia, hypoglycemia, severe [id number]-izsg-[id number] Sister(s) Additional Family Medical History / Comment(s): hypoglycemia <FemiWillie - Filed: 02/08/22 11:55> General Exam Limitations: no limitations General appearance: alert, in no apparent distress Head exam: Present: atraumatic, normocephalic Eye exam: Present: normal appearance, PERRL, EOMI. Absent: scleral icterus, conjunctival injection Neck exam: Present: tenderness, other (There is tenderness to palpation in the left paraspinal muscles and sternocleidomastoid. No bony tenderness.). Absent: meningismus Respiratory exam: Present: normal lung sounds bilaterally. Absent: respiratory distress, wheezes, rales, rhonchi, stridor Cardiovascular Exam: Present: regular rate, normal rhythm, normal heart sounds. Absent: systolic murmur, diastolic murmur, rubs, gallop GI/Abdominal exam: Present: soft. Absent: distended, tenderness, guarding, rebound, rigid, mass Extremities exam: Present: normal inspection, normal capillary refill. Absent: pedal edema, calf tenderness Back exam: Present: normal inspection Neurological exam: Present: alert, oriented X3, CN II-XII intact Skin exam: Present: warm, dry, intact, normal color. Absent: rash <Willie Kahn Last Filed: 02/08/22 11:55> Course Vital Signs 02/08/22 02/08/22 04:00 10:40 Temperature 98.8 F Pulse Rate 77 68 Respiratory 16 16 Rate Blood Pressure 110/74 110/68 O2 Sat by Pulse 100 98 Oximetry Medical Decision Making - Radiology Data Radiology results: report reviewed (CT reviewed as well as report no acute findings.), image reviewed <Merrill Jean - Last Filed: 02/08/22 10:24> - Medical Decision Making Patient was endorsed to me by Dr. Kahn at her shift change. Patient did present with what appear to be extrapyramidal response to Lamictal. He does co mplain of left-sided neck pain exam by me reveals tenderness palpation of the left lateral posterior neck musculature no midline tenderness. Likely muscle spasm. Patient be place and says as well as a short course of muscle relaxer. With respect to the Lamictal the patient is to follow-up with her doctor for reevaluation of the same. Additionally the patient previously been set for discharge prior to CAT scan being ordered. The medication she was on had made her very somnolent initially. (Merrill Jean) Disposition Is patient prescribed a controlled substance at d/c from ED?: No Decision Date: 02/08/22 Decision Time: 10:26 <Merrill Jean - Last Filed: 02/08/22 10:24> Is patient prescribed a controlled substance at d/c from ED?: No <FemiWillie - Last Filed: 02/08/22 11:55> Clinical Impression: Dystonic drug reaction, Neck pain on left side, Muscle spasm Disposition: HOME SELF-CARE Condition: Good Instructions (If sedation given, give patient instructions): Adverse Drug Reaction (ED), Muscle Spasm (ED) Prescriptions: Cyclobenzaprine [Flexeril] 10 mg PO TID #14 tab Ibuprofen [Motrin] 600 mg PO Q6HR PRN #20 tab PRN Reason: Pain Referrals: Raquel Rocha MD [Primary Care Provider] - 1-2 days
[2022-02-08] MEDS ORDERED: diazePAM 5 MG/ML 1 ML VIAL IVP STA (08:58)
--- NOTE | 2022-02-08 10:00 | CT ---
EXAMINATION TYPE: CT soft tissue neck w con CT DLP: 351 mGycm, Automated exposure control for dose reduction was used. DATE OF EXAM: 02/08/2022 9:51 AM COMPARISON: None. CLINICAL INDICATION:Female, 26 years old with history of L neck pain; TECHNIQUE: Standard enhanced CT of the neck following intravenous administration of 100 cc of Isovue 300. Axial sections with coronal and sagittal reformats were obtained. FINDINGS: Brain: Visualized portions are grossly unremarkable. Orbits: Unremarkable Sinuses: Grossly unremarkable. Spaces of the neck: Clear and symmetric. Musculoskeletal: No acute osseous pathology. Lymph nodes: Multiple nonenlarged lymph nodes are seen along both anterior chains of the neck. Vascular structures: Visualized major arteries are patent without evidence of aneurysm. Thoracic Inlet/airway: Airway is patent. The lung apices are clear. Soft tissues/Thyroid: Thyroid and remainder of the soft tissues are unremarkable. Other: none. IMPRESSION No acute process.
[2022-02-08] MEDS ORDERED: KETOROLAC 15 MG/ML 1 ML VIAL IVP STA (10:23)
[2022-02-08 10:41] VITALS: BP 110/68; PULSE 68
== END 2022-02-08 10:40 | disposition home or self-care (01) ==
LOC: EC 03:46
DX: G24.09 Other drug induced dystonia (principal); M54.2 Cervicalgia; J45.909 Unspecified asthma, uncomplicated; Z79.83 Long term (current) use of bisphosphonates; K21.9 Gastro-esophageal reflux disease without esophagitis; F17.200 Nicotine dependence, unspecified, uncomplicated; Z91.030 Bee allergy status; Z88.5 Allergy status to narcotic agent; Z88.6 Allergy status to analgesic agent; Z91.040 Latex allergy status
CPT/HCPCS: 99283; 96374; 96375; 96372; 70491; J1200; J1885; J3360; Q9967

== ENCOUNTER 2023-09-07 14:29 | Emergency (ER) | payer BC, OTHER ==
[2023-09-07 14:47] VITALS: BP 108/66; PULSE 75; RESP 20; TEMP 98.6
--- NOTE | 2023-09-07 14:59 | ED ---
Abdominal Pain HPI - General Chief Complaint: Abdominal Pain Stated Complaint: Abd Pain,blood in urine-sent from [facility] Time Seen by Provider: 09/07/23 14:37 Source: patient, RN notes reviewed Mode of arrival: ambulatory Limitations: no limitations - History of Present Illness Initial Comments: 28-year-old female presents emergency department chief complaint of abdominal, flank pain. Patient states that his pain has been present for 1 week he does seem to wax and wane. Patient states that she was seen in urgent care and sent here for further evaluation. Patient was found to have hematuria. She had negative test. Patient does admit to nausea without vomiting no history of kidney stone. - Related Data Home Medications Medication Instructions Recorded Confirmed No Known Home Medications 09/07/23 09/07/23 Allergies Allergy/AdvReac Type Severity Reaction Status Date / Time morphine Allergy Unknown Verified 09/07/23 15:33 venom-honey bee Allergy Anaphylaxis Verified 09/07/23 15:33 [bee venom (honey bee)] codeine AdvReac Severe Nausea & Verified 09/07/23 15:33 Vomiting latex AdvReac Rash/Hives Verified 09/07/23 15:33 Review of Systems ROS Statement: Those systems with pertinent positive or pertinent negative responses have been documented in the HPI. ROS Other: All systems not noted in ROS Statement are negative. Past Medical History Past Medical History: Asthma, COPD, GERD/Reflux Additional Past Medical History / Comment(s): vertigo, gallblader dysfunction, back pain History of Any Multi-Drug Resistant Organisms: None Reported Past Surgical History: Tubal Ligation Additional Past Surgical History / Comment(s): 07-27-2014 had scope done with dr an with inflammation Past Anesthesia/Blood Transfusion Reactions: Motion Sickness Past Psychological History: Anxiety, Bipolar, Depression, PTSD Smoking Status: Current every day smoker, Vaper Past Alcohol Use History: Occasional Past Drug Use History: None Reported - Past Family History Father Family Medical History: Deep Vein Thrombosis (DVT) Mother Family Medical History: Asthma, COPD Additional Family Medical History / Comment(s): insomnia, hypoglycemia, severe [id number]-bepfwg Sister(s) Additional Family Medical History / Comment(s): hypoglycemia General Exam Limitations: no limitations General appearance: alert, in no apparent distress Head exam: Present: atraumatic, normocephalic, normal inspection Eye exam: Present: normal appearance, PERRL, EOMI. Absent: scleral icterus, conjunctival injection, periorbital swelling ENT exam: Present: normal exam, mucous membranes moist Neck exam: Present: normal inspection, full ROM. Absent: tenderness, meningismus, lymphadenopathy Respiratory exam: Present: normal lung sounds bilaterally. Absent: respiratory distress, wheezes, rales, rhonchi, stridor Cardiovascular Exam: Present: regular rate, normal rhythm, normal heart sounds. Absent: systolic murmur, diastolic murmur, rubs, gallop, clicks GI/Abdominal exam: Present: soft, tenderness, normal bowel sounds. Absent: distended, guarding, rebound, rigid Back exam: Present: CVA tenderness (R). Absent: CVA tenderness (L) Course Vital Signs 09/07/23 14:33 Temperature 98.6 F Pulse Rate 75 Respiratory 20 Rate Blood Pressure 108/66 O2 Sat by Pulse 99 Oximetry Medical Decision Making - Medical Decision Making Was pt. sent in by a medical professional or institution (, PA, RAM PRESS OPERATOR, urgent care, hospital, or fpc...) When possible be specific @ -Urgent care Did you speak to anyone other than the patient for history (EMS, parent, family, police, friend...)? What history was obtained from this source @ -No Did you review nursing and triage notes (agree or disagree)? Why? @ -I reviewed and agree with nursing and triage notes Were old charts reviewed (outside hosp., previous admission, EMS record, old EKG, old radiological studies, urgent care reports/EKG's, fpc records)? Report findings @ -No old charts were reviewed Differential Diagnosis (chest pain, altered mental status, abdominal pain women, abdominal pain men, vaginal bleeding, weakness, fever, dyspnea, syncope, headache, dizziness, GI bleed, back pain, seizure, CVA, palpatations, mental health, musculoskeletal)? @ -Differential Abdominal Pain Women: Appendicitis, Cholecystitis, diverticulosis, ischemic bowel, pancreatitis, hepatitis, UTI, gastroenteritis, AAA, incarcerated hernia, bowel obstruction, constipation, inflammatory bowel, hepatitis, peptic ulcer disease, splenic infarction, perforated viscus, vulvitis, ovarian torsion, PID, kidney stone, placenta abruption, this is not meant to be an all-inclusive list EKG interpreted by me (3pts min.). @ -None X-rays interpreted by me (1pt min.). @ -None done CT interpreted by me (1pt min.). @ -CT abdomen pelvis showing constipation otherwise no acute intra-abdominal process U/S interpreted by me (1pt. min.). @ -None done What testing was considered but not performed or refused? (CT, X-rays, U/S, labs)? Why? @ -None What meds were considered but not given or refused? Why? @ -None Did you discuss the management of the patient with other professionals (professionals i.e. , PA, RAM PRESS OPERATOR, lab, RT, psych nurse, social organization professor, spinning bath patroller, teacher, correctional officer captain, case packer and sealer)? Give summary @ -No Was smoking cessation discussed for >3mins.? @ -No Was critical care preformed (if so, how long)? @ -No Were there social determinants of health that impacted care today? How? (Homelessness, low income, unemployed, alcoholism, drug addiction, transporta tion, low edu. Level, literacy, decrease access to med. care, fci, rehab)? @ -No Was there de-escalation of care discussed even if they declined (Discuss DNR or withdrawal of care, Hospice)? DNR status @ -No What co-morbidities impacted this encounter? (DM, HTN, Smoking, COPD, CAD, Cancer, CVA, ARF, Chemo, Hep., AIDS, mental health diagnosis, sleep apnea, morbid obesity)? @ -None Was patient admitted / discharged? Hospital course, mention meds given and route, prescriptions, significant lab abnormalities, going to OR and other pertinent info. @ -Discharge patient forked including labs, CT patient had urinalysis that urgent care showing hematuria there is no cause for hematuria noted on CT. Patient does have moderate constipation will be discharged in stable condition. Undiagnosed new problem with uncertain prognosis? @ -No Drug Therapy requiring intensive monitoring for toxicity (Heparin, Nitro, Insulin, Cardizem)? @ -No Were any procedures done? @ -No Diagnosis/symptom? @ -Abdominal pain Acute, or Chronic, or Acute on Chronic? @ -Acute Uncomplicated (without systemic symptoms) or Complicated (systemic symptoms)? @ -Uncomplicated Side effects of treatment? @ -No Exacerbation, Progression, or Severe Exacerbation? @ -No Poses a threat to life or bodily function? How? (Chest pain, USA, ME, pneumonia, PE, COPD, DKA, ARF, appy, cholecystitis, CVA, Diverticulitis, Homicidal, Suicid al, threat to staff... and all critical care pts) @ -No - Lab Data Result diagrams: 09/07/23 14:45 09/07/23 14:45 Lab Results 09/07/23 09/07/23 Range/Units 14:45 14:45 WBC 8.5 (3.8-10.6) k/uL RBC 4.79 (3.80-5.40) m/uL Hgb 14.2 (11.4-16.0) gm/dL Hct 41.9 (34.0-46.0) % MCV 87.5 (80.0-100.0) fL MCH 29.6 (25.0-35.0) pg MCHC 33.9 (31.0-37.0) g/dL RDW 12.7 (11.5-15.5) % Plt Count 256 (150-450) k/uL MPV 6.9 Neutrophils % 67 % Lymphocytes % 24 % Monocytes % 6 % Eosinophils % 2 % Basophils % 1 % Neutrophils # 5.7 (1.3-7.7) k/uL Lymphocytes # 2.1 (1.0-4.8) k/uL Monocytes # 0.5 (0-1.0) k/uL Eosinophils # 0.1 (0-0.7) k/uL Basophils # 0.1 (0-0.2) k/uL Sodium 137 (137-145) mmol/L Potassium 5.5 H (3.5-5.1) mmol/L Chloride 109 H (98-107) mmol/L Carbon Dioxide 22 (22-30) mmol/L Anion Gap 6 mmol/L BUN 17 (7-17) mg/dL Creatinine 0.61 (0.52-1.04) mg/dL Est GFR (CKD-EPI)AfAm >90 (>60 ml/min/1.73 sqM) Est GFR (CKD-EPI)NonAf >90 (>60 ml/min/1.73 sqM) Glucose 108 H (74-99) mg/dL Calcium 9.2 (8.4-10.2) mg/dL Total Bilirubin 1.3 (0.2-1.3) mg/dL AST 51 H (14-36) U/L ALT 24 (4-34) U/L Alkaline Phosphatase 34 L (38-126) U/L Total Protein 7.3 (6.3-8.2) g/dL Albumin 4.4 (3.5-5.0) g/dL Lipase 141 (23-300) U/L Disposition Clinical Impression: Abdominal pain, Constipation Disposition: HOME SELF-CARE Condition: Stable Instructions (If sedation given, give patient instructions): Abdominal Pain (ED) Additional Instructions: Please return to the Emergency Department if symptoms worsen or any other concerns. Is patient prescribed a controlled substance at d/c from ED?: No Referrals: None,Stated [Primary Care Provider] - 1-2 days Time of Disposition: 16:13
[2023-09-07 15:12] LABS: Basophils # (A) 0.1 k/uL (0-0.2); Basophils % (A) 1 %; Eosinophils # (A) 0.1 k/uL (0-0.7); Eosinophils % (A) 2 %; HCT 41.9 % (34.0-46.0); HGB 14.2 gm/dL (11.4-16.0); Lymphocytes # (A) 2.1 k/uL (1.0-4.8); Lymphocytes % (A) 24 %; MCH 29.6 pg (25.0-35.0); MCHC 33.9 g/dL (31.0-37.0); MCV 87.5 fL (80.0-100.0); Mean Platelet Volume 6.9; Monocytes # (A) 0.5 k/uL (0-1.0); Monocytes % (A) 6 %; Neutrophils # (A) 5.7 k/uL (1.3-7.7); Neutrophils % (A) 67 %; Platelet Count 256 k/uL (150-450); RBC 4.79 m/uL (3.80-5.40); RDW 12.7 % (11.5-15.5); WBC 8.5 k/uL (3.8-10.6)
[2023-09-07] MEDS: SODIUM CHLORIDE 0.9% 1,000 ML IV STA (15:15)
[2023-09-07] MEDS: SODIUM CHLORIDE 0.9% 500 ML 500 ML IV STA (15:15)
[2023-09-07 15:49] LABS: ALT 24 U/L (4-34); AST 51 U/L (14-36); African American GFR (CKD) >90 (>60 ml/min/1.73 sqM); Albumin 4.4 g/dL (3.5-5.0); Alkaline Phosphatase 34 U/L (38-126); Anion Gap 6 mmol/L; Blood Urea Nitrogen 17 mg/dL (7-17); Calcium 9.2 mg/dL (8.4-10.2); Carbon Dioxide 22 mmol/L (22-30); Chloride 109 mmol/L (98-107); Glucose 108 mg/dL (74-99); Lipase 141 U/L (23-300); Non-African American GFR(CKD) >90 (>60 ml/min/1.73 sqM); Sodium 137 mmol/L (137-145); Total Bilirubin 1.3 mg/dL (0.2-1.3); Total Protein 7.3 g/dL (6.3-8.2)
[2023-09-07 15:54] LABS: Potassium 5.5 mmol/L (3.5-5.1)
--- NOTE | 2023-09-07 16:11 | CT ---
EXAMINATION TYPE: CT abdomen pelvis wo con CT DLP: 454.6 mGycm, Automated exposure control for dose reduction was used. DATE OF EXAM: 09/07/2023 3:21 PM COMPARISON: None. CLINICAL INDICATION:Female, 28 years old with history of Hematuria, flank pain; Hematuria, flank pain TECHNIQUE: Axial CT of the abdomen and pelvis. Sagittal and coronal reformats were created on a [employer] workstation. Contrast used: mL of , (none if empty) Oral contrast used: without Oral Contrast (none if empty) FINDINGS: Exam is limited without contrast. LOWER CHEST: Unremarkable ABDOMEN LIVER: Unremarkable GALLBLADDER AND BILE DUCTS: Unremarkable gallbladder. No biliary ductal dilatation. PANCREAS: Unremarkable. SPLEEN: Unremarkable. ADRENAL GLANDS: Unremarkable. KIDNEYS AND URETERS: No evidence of renal calculi or contour deformity. No hydronephrosis. No visuali zed ureteral calculi. PELVIS BLADDER: Incompletely distended but grossly unremarkable. REPRODUCTIVE: Uterus is present. Radiodensities both on the right with the appearance of tubal ligati on clips. Ovaries are not clearly seen. ABDOMEN & PELVIS STOMACH AND BOWEL: Stomach and small bowel are nondistended, no evidence of obstruction. The append ix appears within normal limits. There is a moderate amount of stool throughout the colon, correlate for constipation. Colonic diverticula are present which do not appear inflamed. PERITONEUM/RETROPERITONEUM: No evidence of pneumoperitoneum or free fluid. VASCULATURE: LYMPH NODES: No gross evidence for lymphadenopathy. SOFT TISSUE/ABDOMINAL WALL: Small fat-containing umbilical hernia. MUSCULOSKELETAL: No acute osseous abnormalities. Small limbus vertebra noted at L4. IMPRESSION: 1. No evidence of urinary tract calculi or hydronephrosis. 2. Possible constipation. No evidence of acute inflammatory process, bowel obstruction or free air.
== END 2023-09-07 16:29 | disposition home or self-care (01) ==
LOC: EC 14:29
DX: K59.00 Constipation, unspecified (principal); J44.89 Other specified chronic obstructive pulmonary disease; F17.290 Nicotine dependence, other tobacco product, uncomplicated; Z88.5 Allergy status to narcotic agent; Z91.030 Bee allergy status; Z91.040 Latex allergy status
CPT/HCPCS: 36415; 74176; 80053; 83690; 85025; 96360; 99284

== ENCOUNTER 2024-06-27 12:23 | Emergency (ER) | payer OTHER ==
--- NOTE | 2024-06-27 13:35 | ED ---
Headache HPI - General Source: patient, RN notes reviewed Mode of arrival: ambulatory Limitations: no limitations - History of Present Illness MD Complaint: headache <Merna Hunter - Last Filed: 06/27/24 13:33> - General Source: patient, RN notes reviewed, old records reviewed Mode of arrival: ambulatory Limitations: no limitations - History of Present Illness MD Complaint: headache, other (Nausea vomiting fever) -: hour(s) Onset Description: gradual Location: frontal, retro-orbital Severity: moderate Severity scale (1-10): 4 Quality: throbbing Consistency: intermittent Improves With: nothing Worsens With: none Associated Symptoms: fever, nausea, vomiting, confusion, weakness Other Symptoms: malaise Treatments Prior to Arrival: Ibuprofen, other (Benadryl) <Pavel Russell - Last Filed: 07/03/24 15:55> - General Chief Complaint: Neuro Symptoms/Deficit Stated Complaint: dizzy,headache Time Seen by Provider: 06/27/24 13:10 - History of Present Illness Initial Comments: Quick Note: This is a 29-year-old female who presents to the emergency department for neurological symptoms. States that starting yesterday she began to develop a headache behind her eyes, dizziness, and confusion. States that she has difficulty walking and understanding other people. Symptoms have persisted into today. States that she had a similar episode years ago and was told that she "almost had a stroke", but is unsure what was meant by that. (Merna Hunter) This is a 29-year-old female to the ER for evaluation of neurological symptoms feeling headache dizziness lightheadedness and believes she had fever yesterday some back pain generalized pains and not feeling well. (Pavel Russell) - Related Data Home Medications Medication Instructions Recorded Confirmed No Known Home Medications 09/07/23 09/07/23 Allergies Allergy/AdvReac Type Severity Reaction Status Date / Time morphine Allergy Unknown Verified 06/27/24 12:39 venom-honey bee Allergy Anaphylaxis Verified 06/27/24 12:39 [bee venom (honey bee)] codeine AdvReac Severe Nausea & Verified 06/27/24 12:39 Vomiting latex AdvReac Rash/Hives Verified 06/27/24 12:39 Review of Systems ROS Other: All systems not noted in ROS Statement are negative. <Merna Hunter - Last Filed: 06/27/24 13:33> ROS Other: All systems not noted in ROS Statement are negative. <Pavel Russell - Last Filed: 07/03/24 15:55> ROS Statement: Those systems with pertinent positive or pertinent negative responses have been documented in the HPI. Past Medical History Past Medical History: Asthma, COPD, GERD/Reflux Additional Past Medical History / Comment(s): vertigo, gallblader dysfunction, back pain History of Any Multi-Drug Resistant Organisms: None Reported Past Surgical History: Tubal Ligation Additional Past Surgical History / Comment(s): 07-27-2014 had scope done with dr an with inflammation Past Anesthesia/Blood Transfusion Reactions: Motion Sickness Past Psychological History: Anxiety, Bipolar, Depression, PTSD Smoking Status: Current every day smoker, Vaper Past Alcohol Use History: Occasional Past Drug Use History: Marijuana - Past Family History Father Family Medical History: Deep Vein Thrombosis (DVT) Mother Family Medical History: Asthma, COPD Additional Family Medical History / Comment(s): insomnia, hypoglycemia, severe [id number] Sister(s) Additional Family Medical History / Comment(s): hypoglycemia <Merna Hunter - Last Filed: 06/27/24 13:33> General Exam Limitations: no limitations <Merna Hunter - Last Filed: 06/27/24 13:33> General appearance: alert, in no apparent distress Head exam: Present: atraumatic, normocephalic, normal inspection Eye exam: Present: normal appearance, PERRL, EOMI. Absent: scleral icterus, conjunctival injection, periorbital swelling ENT exam: Present: normal exam, mucous membranes moist Neck exam: Present: normal inspection. Absent: tenderness, meningismus, lymphadenopathy Respiratory exam: Present: normal lung sounds bilaterally. Absent: respiratory distress, wheezes, rales, rhonchi, stridor Cardiovascular Exam: Present: regular rate, normal rhythm, normal heart sounds. Absent: systolic murmur, diastolic murmur, rubs, gallop, clicks GI/Abdominal exam: Present: soft, normal bowel sounds. Absent: distended, tenderness, guarding, rebound, rigid Extremities exam: Present: normal inspection, full ROM, normal capillary refill. Absent: tenderness, pedal edema, joint swelling, calf tenderness Back exam: Present: normal inspection Neurological exam: Present: alert, oriented X3, CN II-XII intact Psychiatric exam: Present: normal affect, normal mood Skin exam: Present: warm, dry, intact, normal color. Absent: rash <Pavel Russell - Last Filed: 07/03/24 15:55> - General Exam Comments Initial Comments: Visual Physical Exam Vital signs reviewed General: Well-appearing, nontoxic, no acute distress. Head: Normocephalic, atraumatic Eyes: PERRLA, EOMI ENT: Airway patent Chest: Nonlabored breathing Skin: No visual rash, normal skin tone Neuro: Alert and oriented 3 Musculoskeletal: No gross abnormalities (Merna Hunter) Course <Pavel Russell - Last Filed: 07/03/24 15:55> Vital Signs 06/27/24 06/27/24 06/27/24 12:32 16:37 18:11 Temperature 98.6 F 98.9 F 98.8 F Pulse Rate 84 80 81 Respiratory 18 18 18 Rate Blood Pressure 113/71 105/70 108/76 O2 Sat by Pulse 98 100 100 Oximetry 06/27/24 20:03 Temperature 98.2 F Pulse Rate 72 Respiratory 19 Rate Blood Pressure 130/78 O2 Sat by Pulse 98 Oximetry - Reevaluation(s) Reevaluation #1: 06/27/24 16:30 Records reviewed (Pavel Russell) Reevaluation #2: 06/27/24 19:19 Patient symptoms improving (Pavel Russell) Reevaluation #3: 06/27/24 19:19 Informed of results and questions answered (Pavel Russell) Reevaluation #4: Was pt. sent in by a medical professional or institution (, PA, INDUSTRIAL SPRAYPAINTER, urgent care, hospital, or senior living...) When possible be specific @ -no Did you speak to anyone other than the patient for history (EMS, parent, family, police, friend...)? What history was obtained from this source @ -no Did you review nursing and triage notes (agree or disagree)? Why? @ -agree Are old charts reviewed (outside hosp., previous admission, EMS record, old EKG, old radiological studies, urgent care reports/EKG's, senior living records)? Report findings @ -yes Differential Diagnosis (chest pain, altered mental status, abdominal pain women, abdominal pain men, vaginal bleeding, weakness, fever, dyspnea, syncope, headache, dizziness, GI bleed, back pain, seizure, CVA, palpatations, mental health, musculoskeletal)? @ -prior EKG interpreted by me (3pts min.). @ -yes X-rays interpreted by me (1pt min.). @ -yes negative for acute disease CT interpreted by me (1pt min.). @ -Chest negative for acute disease U/S interpreted by me (1pt. min.). @ -no What testing was considered but not performed or refused? (CT, X-rays, U/S, labs)? Why? @ -none What meds were considered but not given or refused? Why? @ -none Did you discuss the management of the patient with other professionals (professionals i.e. , PA, INDUSTRIAL SPRAYPAINTER, lab, RT, psych nurse, social services, inspector screen printing, teacher, president and chief commercial officer, telephonic nurse case manager)? Give summary @ -no Was smoking cessation discussed for >3mins.? @ -no Was critical care preformed (if so, how long)? @ -no Were there social determinants of health that impacted care today? How? (Homelessness, low income, unemployed, alcoholism, drug addiction, transportation, low edu. Level, literacy, decrease access to med. care, half-way, rehab)? @ -none Was there de-escalation of care discussed even if they declined (Discuss DNR or withdrawal of care, Hospice)? DNR status @ -no What co-morbidities impacted this encounter? (DM, HTN, Smoking, COPD, CAD, Cancer, CVA, ARF, Chemo, Hep., AIDS, mental health diagnosis, sleep apnea, morbid obesity)? @ -none Was patient admitted / discharged? Hospital course, mention meds given and route, prescriptions, significant lab abnormalities, going to OR and other pertinent info. @ - 29 female to ER with fever starting yesterday occasional headache nausea vomiting body aches and pains. No acute cause of symptoms here in the ER no significant distress patient will be discharged home Discharge Undiagnosed new problem with uncertain prognosis? @ -no Drug Therapy requiring intensive monitoring for toxicity (Heparin, Nitro, Insulin, Cardizem)? @ -no Were any procedures done? @ -no Diagnosis/symptom? @ -Headache body aches pain fever viral syndrome Acute, or Chronic, or Acute on Chronic? @ -Acute Uncomplicated (without systemic symptoms) or Complicated (systemic symptoms)? @ -Complicated Side effects of treatment? @ -no Exacerbation, Progression, or Severe Exacerbation? @ -exacerbation Poses a threat to life or bodily function? How? (Chest pain, [place], [place], pneumonia, PE, COPD, DKA, ARF, appy, cholecystitis, CVA, Diverticulitis, Homicidal, Suicidal, threat to staff... and all critical care pts) @ -yes fever and headache (Pavel Russell) Reevaluation #5: Differential Fever: Pneumonia, viral URI, endocarditis, myocarditis, pericarditis, otitis, sinusitis, peritonsillar Abscess, retropharyngeal Abscess, epiglottitis, pe ritonitis, appendicitis, Evonne cystitis, diverticulitis, hepatitis, colitis, UTI, PID, TOA, pyelonephritis, prostatitis, epididymitis, meningitis, encephalitis, pulmonary embolism, CVA, thyroid storm, pancreatitis, adrenal crisis, cavernous sinus thrombosis, this is not meant to be an all-inclusive list. (Pavel Russell) Medical Decision Making <Merna Hunter - Last Filed: 06/27/24 13:33> - Lab Data Result diagrams: 06/27/24 15:25 06/27/24 15:25 - Radiology Data Radiology results: report reviewed (CT brain chest x-ray negative for acute d isease CT abdomen pelvis negative for acute disease), image reviewed <Pavel Russell - Last Filed: 07/03/24 15:55> - Medical Decision Making I performed the QuickNote portion of this chart. Signed Merna Hunter PA-C. (Merna Hunter) 29 female to ER with fever starting yesterday occasional headache nausea vomiting body aches and pains. No acute cause of symptoms here in the ER no significant distress patient will be discharged home (Pavel Russell) - Lab Data Lab Results 06/27/24 06/27/24 06/27/24 Range/Units 13:48 13:48 13:48 WBC (3.8-10.6) k/uL RBC (3.80-5.40) m/uL Hgb (11.4-16.0) gm/dL Hct (34.0-46.0) % MCV (80.0-100.0) fL MCH (25.0-35.0) pg MCHC (31.0-37.0) g/dL RDW (11.5-15.5) % Plt Count (150-450) k/uL MPV Neutrophils % % Lymphocytes % % Monocytes % % Eosinophils % % Basophils % % Neutrophils # (1.3-7.7) k/uL Lymphocytes # (1.0-4.8) k/uL Monocytes # (0-1.0) k/uL Eosinophils # (0-0.7) k/uL Basophils # (0-0.2) k/uL Sodium (137-145) mmol/L Potassium (3.5-5.1) mmol/L Chloride (98-107) mmol/L Carbon Dioxide (22-30) mmol/L Anion Gap mmol/L BUN (7-17) mg/dL Creatinine (0.52-1.04) mg/dL Est GFR (CKD-EPI)AfAm (>60 ml/min/1.73 sqM) Est GFR (CKD-EPI)NonAf (>60 ml/min/1.73 sqM) Glucose (74-99) mg/dL Calcium (8.4-10.2) mg/dL Magnesium (1.6-2.3) mg/dL Total Bilirubin (0.2-1.3) mg/dL AST (14-36) U/L ALT (4-34) U/L Alkaline Phosphatase (38-126) U/L C-Reactive Protein (<1.0) mg/dL Total Protein (6.3-8.2) g/dL Albumin (3.5-5.0) g/dL Urine Color Yellow Urine Appearance Cloudy H (Clear) Urine pH 6.0 (5.0-8.0) Ur Specific [place] 1.017 (1.001-1.035) Urine Protein Trace H (Negative) Urine Glucose (UA) Negative (Negative) Urine Ketones Negative (Negative) Urine Blood Large H (Negative) Urine Nitrite Negative (Negative) Urine Bilirubin Negative (Negative) Urine Urobilinogen <2.0 (<2.0) mg/dL Ur Leukocyte Esterase Small H (Negative) Urine RBC 102 H (0-5) /hpf Urine WBC 1 (0-5) /hpf Ur Squamous Epith Cells 17 H (0-4) /hpf Urine Mucus Many H (None) /hpf Urine HCG, Qual Not Detected (Not Detectd) Urine Opiates Screen Not Detected (NotDetected) Ur Oxycodone Screen Not Detected (NotDetected) Urine Methadone Screen Not Detected (NotDetected) Ur Barbiturates Screen Not Detected (NotDetected) U Tricyclic Antidepress Not Detected (NotDetected) Ur Phencyclidine Scrn Not Detected (NotDetected) Ur Amphetamines Screen Not Detected (NotDetected) U Methamphetamines Scrn Not Detected (NotDetected) U Benzodiazepines Scrn Not Detected (NotDetected) Urine Cocaine Screen Not Detected (NotDetected) U Marijuana (THC) Screen Not Detected (NotDetected) Influenza Type A (PCR) (Not Detectd) Influenza Type B (PCR) (Not Detectd) RSV (PCR) (Not Detectd) SARS-CoV-2 (PCR) (Not Detectd) 06/27/24 06/27/24 06/27/24 Range/Units 15:25 15:25 15:25 WBC 7.4 (3.8-10.6) k/uL RBC 4.59 (3.80-5.40) m/uL Hgb 13.5 (11.4-16.0) gm/dL Hct 40.0 (34.0-46.0) % MCV 87.3 (80.0-100.0) fL MCH 29.4 (25.0-35.0) pg MCHC 33.7 (31.0-37.0) g/dL RDW 12.3 (11.5-15.5) % Plt Count 201 (150-450) k/uL MPV 7.0 Neutrophils % 62 % Lymphocytes % 27 % Monocytes % 7 % Eosinophils % 1 % Basophils % 1 % Neutrophils # 4.6 (1.3-7.7) k/uL Lymphocytes # 2.0 (1.0-4.8) k/uL Monocytes # 0.5 (0-1.0) k/uL Eosinophils # 0.1 (0-0.7) k/uL Basophils # 0.1 (0-0.2) k/uL Sodium 138 (137-145) mmol/L Potassium 4.3 (3.5-5.1) mmol/L Chloride 105 (98-107) mmol/L Carbon Dioxide 26 (22-30) mmol/L Anion Gap 7 mmol/L BUN 18 H (7-17) mg/dL Creatinine 0.73 (0.52-1.04) mg/dL Est GFR (CKD-EPI)AfAm >90 (>60 ml/min/1.73 sqM) Est GFR (CKD-EPI)NonAf >90 (>60 ml/min/1.73 sqM) Glucose 89 (74-99) mg/dL Calcium 9.0 (8.4-10.2) mg/dL Magnesium 2.0 (1.6-2.3) mg/dL Total Bilirubin 0.9 (0.2-1.3) mg/dL AST 20 (14-36) U/L ALT 25 (4-34) U/L Alkaline Phosphatase 56 (38-126) U/L C-Reactive Protein 2.1 H (<1.0) mg/dL Total Protein 6.9 (6.3-8.2) g/dL Albumin 4.2 (3.5-5.0) g/dL Urine Color Urine Appearance (Clear) Urine pH (5.0-8.0) Ur Specific [place] (1.001-1.035) Urine Protein (Negative) Urine Glucose (UA) (Negative) Urine Ketones (Negative) Urine Blood (Negative) Urine Nitrite (Negative) Urine Bilirubin (Negative) Urine Urobilinogen (<2.0) mg/dL Ur Leukocyte Esterase (Negative) Urine RBC (0-5) /hpf Urine WBC (0-5) /hpf Ur Squamous Epith Cells (0-4) /hpf Urine Mucus (None) /hpf Urine HCG, Qual (Not Detectd) Urine Opiates Screen (NotDetected) Ur Oxycodone Screen (NotDetected) Urine Methadone Screen (NotDetected) Ur Barbiturates Screen (NotDetected) U Tricyclic Antidepress (NotDetected) Ur Phencyclidine Scrn (NotDetected) Ur Amphetamines Screen (NotDetected) U Methamphetamines Scrn (NotDetected) U Benzodiazepines Scrn (NotDetected) Urine Cocaine Screen (NotDetected) U Marijuana (THC) Screen (NotDetected) Influenza Type A (PCR) (Not Detectd) Influenza Type B (PCR) (Not Detectd) RSV (PCR) (Not Detectd) SARS-CoV-2 (PCR) (Not Detectd) 06/27/24 Range/Units 16:17 WBC (3.8-10.6) k/uL RBC (3.80-5.40) m/uL Hgb (11.4-16.0) gm/dL Hct (34.0-46.0) % MCV (80.0-100.0) fL MCH (25.0-35.0) pg MCHC (31.0-37.0) g/dL RDW (11.5-15.5) % Plt Count (150-450) k/uL MPV Neutrophils % % Lymphocytes % % Monocytes % % Eosinophils % % Basophils % % Neutrophils # (1.3-7.7) k/uL Lymphocytes # (1.0-4.8) k/uL Monocytes # (0-1.0) k/uL Eosinophils # (0-0.7) k/uL Basophils # (0-0.2) k/uL Sodium (137-145) mmol/L Potassium (3.5-5.1) mmol/L Chloride (98-107) mmol/L Carbon Dioxide (22-30) mmol/L Anion Gap mmol/L BUN (7-17) mg/dL Creatinine (0.52-1.04) mg/dL Est GFR (CKD-EPI)AfAm (>60 ml/min/1.73 sqM) Est GFR (CKD-EPI)NonAf (>60 ml/min/1.73 sqM) Glucose (74-99) mg/dL Calcium (8.4-10.2) mg/dL Magnesium (1.6-2.3) mg/dL Total Bilirubin (0.2-1.3) mg/dL AST (14-36) U/L ALT (4-34) U/L Alkaline Phosphatase (38-126) U/L C-Reactive Protein (<1.0) mg/dL Total Protein (6.3-8.2) g/dL Albumin (3.5-5.0) g/dL Urine Color Urine Appearance (Clear) Urine pH (5.0-8.0) Ur Specific [place] (1.001-1.035) Urine Protein (Negative) Urine Glucose (UA) (Negative) Urine Ketones (Negative) Urine Blood (Negative) Urine Nitrite (Negative) Urine Bilirubin (Negative) Urine Urobilinogen (<2.0) mg/dL Ur Leukocyte Esterase (Negative) Urine RBC (0-5) /hpf Urine WBC (0-5) /hpf Ur Squamous Epith Cells (0-4) /hpf Urine Mucus (None) /hpf Urine HCG, Qual (Not Detectd) Urine Opiates Screen (NotDetected) Ur Oxycodone Screen (NotDetected) Urine Methadone Screen (NotDetected) Ur Barbiturates Screen (NotDetected) U Tricyclic Antidepress (NotDetected) Ur Phencyclidine Scrn (NotDetected) Ur Amphetamines Screen (NotDetected) U Methamphetamines Scrn (NotDetected) U Benzodiazepines Scrn (NotDetected) Urine Cocaine Screen (NotDetected) U Marijuana (THC) Screen (NotDetected) Influenza Type A (PCR) Not Detected (Not Detectd) Influenza Type B (PCR) Not Detected (Not Detectd) RSV (PCR) Not Detected (Not Detectd) SARS-CoV-2 (PCR) Not Detected (Not Detectd) Disposition <Merna Hunter - Last Filed: 06/27/24 13:33> Is patient prescribed a controlled substance at d/c from ED?: No Time of Disposition: 19:20 <Pavel Russell - Last Filed: 07/03/24 15:55> Clinical Impression: Viral syndrome, Dizziness, Nausea & vomiting Disposition: HOME SELF-CARE Condition: Good Instructions (If sedation given, give patient instructions): Acute Nausea and Vomiting (ED), Viral Syndrome (ED), Dizziness (ED) Referrals: None,Stated [Primary Care Provider] - 1-2 days Forms: Area PCPs
[2024-06-27 14:08] LABS: Appearance,Urine Cloudy (Clear); Bilirubin,Urine Negative (Negative); Blood,Urine Large (Negative); Color,Urine Yellow; Glucose,Urine (UA) Negative (Negative); Ketones,Urine Negative (Negative); Leukocyte Esterase,Urine Small (Negative); Mucus,Urine Many /hpf; Nitrite,Urine Negative (Negative); Protein,Urine Trace (Negative); RBC,Urine 102 /hpf (0-5); Specific Gravity,Urine 1.017 (1.001-1.035); Squamous Epithelial Cell,Urine 17 /hpf (0-4); Urobilinogen,Urine <2.0 mg/dL (<2.0); WBC,Urine 1 /hpf (0-5)
--- NOTE | 2024-06-27 14:18 | CT ---
EXAMINATION TYPE: CT brain wo con CT DLP: 1080.3 mGycm, Automated exposure control for dose reduction was used. DATE OF EXAM: 06/27/2024 2:13 PM COMPARISON: CT brain 09/23/2013 CLINICAL INDICATION:Female, 29 years old with history of Dizziness, confusion, CONFUSION TECHNIQUE: Brain: Multiple axial CT images of the brain were obtained without IV contrast. . Coronal and sagitta l reformats reviewed. FINDINGS: Brain: Extra-axial spaces: No abnormal extra-axial fluid collections. Ventricular system: Within normal limits Cerebral parenchyma: No acute intraparenchymal hemorrhage or mass effect. The jacinto-white junction is well differentiated. Partial empty sella morphology. Cerebellum: Unremarkable. Mass effect: No evidence of midline shift. Intracranial vasculature: unremarkable Soft tissues: Normal. Calvarium/osseous structures: No depressed skull fracture. Paranasal sinuses and mastoid air cells: Clear Visualized orbits: Orbital contents are intact. IMPRESSION: No acute intracranial process. [facility], , 06/27/2024 2:16 PM
[2024-06-27 14:20] LABS: Amphetamine Screen,Urine Not Detected (NotDetected); Barbiturate Screen,Urine Not Detected (NotDetected); Benzodiazepines Screen,Urine Not Detected (NotDetected); Cocaine Screen,Urine Not Detected (NotDetected); Methadone Screen, Urine Not Detected (NotDetected); Opiate Screen,Urine Not Detected (NotDetected); Oxycodone Screen, Urine Not Detected (NotDetected); Phencyclidine Screen,Urine Not Detected (NotDetected); Tricyclic Antidepressant,Urine Not Detected (NotDetected); Urn Cannabinoid Scrn Not Detected (NotDetected)
[2024-06-27 15:41] LABS: Basophils # (A) 0.1 k/uL (0-0.2); Basophils % (A) 1 %; Eosinophils # (A) 0.1 k/uL (0-0.7); Eosinophils % (A) 1 %; HGB 13.5 gm/dL (11.4-16.0); Lymphocytes % (A) 27 %; MCH 29.4 pg (25.0-35.0); MCHC 33.7 g/dL (31.0-37.0); MCV 87.3 fL (80.0-100.0); Monocytes # (A) 0.5 k/uL (0-1.0); Monocytes % (A) 7 %; Neutrophils # (A) 4.6 k/uL (1.3-7.7); Neutrophils % (A) 62 %; Platelet Count 201 k/uL (150-450); RBC 4.59 m/uL (3.80-5.40); RDW 12.3 % (11.5-15.5); WBC 7.4 k/uL (3.8-10.6)
[2024-06-27 16:04] LABS: ALT 25 U/L (4-34); AST 20 U/L (14-36); African American GFR (CKD) >90 (>60 ml/min/1.73 sqM); Albumin 4.2 g/dL (3.5-5.0); Alkaline Phosphatase 56 U/L (38-126); Anion Gap 7 mmol/L; Blood Urea Nitrogen 18 mg/dL (7-17); Carbon Dioxide 26 mmol/L (22-30); Chloride 105 mmol/L (98-107); Glucose 89 mg/dL (74-99); Non-African American GFR(CKD) >90 (>60 ml/min/1.73 sqM); Potassium 4.3 mmol/L (3.5-5.1); Sodium 138 mmol/L (137-145); Total Bilirubin 0.9 mg/dL (0.2-1.3); Total Protein 6.9 g/dL (6.3-8.2)
[2024-06-27] MEDS: ACETAMINOPHEN TAB 500 MG TAB PO STA (16:14)
[2024-06-27] MEDS: IBUPROFEN 800 MG TAB PO STA (16:15)
[2024-06-27] MEDS: SODIUM CHLORIDE 0.9% 1,000 ML IV STA (16:45)
[2024-06-27] MEDS: diphenhydrAMINE 50 MG/ML 1 ML VIAL IVP STA (16:46)
[2024-06-27] MEDS: SODIUM CHLORIDE 0.9% 500 ML 500 ML IV STA (16:46)
[2024-06-27] MEDS: PROCHLORPERAZINE INJ 10 MG/2 ML VIAL IVP STA (16:46)
[2024-06-27] MEDS: KETOROLAC 15 MG/ML 1 ML VIAL IVP STA (16:47)
[2024-06-27] MEDS: SODIUM CHLORIDE 0.9% 1,000 ML IV SCH (18:09)
--- NOTE | 2024-06-27 18:17 | XR ---
EXAMINATION TYPE: XR chest 2V DATE OF EXAM: 06/27/2024 5:48 PM COMPARISON: 11/14/2015 CLINICAL INDICATION: Female, 29 years old with history of pain, TECHNIQUE: XR chest 2V view(s) obtained. FINDINGS: The heart size is normal. The pulmonary vasculature is normal. The lungs are clear. IMPRESSION: 1. No acute pulmonary process. [facility], , 06/27/2024 6:15 PM
--- NOTE | 2024-06-27 18:54 | CT ---
EXAMINATION TYPE: CT abdomen pelvis wo con DATE OF EXAM: 06/27/2024 6:08 PM COMPARISON: None. CLINICAL INDICATION: Female, 29 years old with history of pain, Nausea. TECHNIQUE: Axial images were obtained from above the diaphragm to the pubic rami in the axial plane a t 5 mm thick sections. Reconstructed images are reviewed on the computer in the coronal plane. CONTRAST: mL of . Study performed without Oral Contrast DLP: 457.2 mGycm, Automated exposure control for dose reduction was used. FINDINGS: Limited CT sections are obtained the lung bases. The lung bases are clear. CT ABDOMEN: Liver: Normal Spleen: Normal Pancreas: Normal Adrenal glands: The adrenal glands are normal. Gallbladder: Normal Kidneys: No masses are evident. No hydronephrosis is present. No cysts are present. Delayed images were obtained through the kidneys, which remain unremarkable. Aorta: Normal Inferior vena cava: Normal. CT PELVIS: Loops of bowel within the abdomen and pelvis are normal. This study is oral contrast limiting bow el evaluation. Appendix: Normal as visualized. Urinary bladder: Normal. Genitourinary structures: Uterus is unremarkable. Adnexa are normal. Osseous structures: No suspicious lytic or sclerotic lesions. IMPRESSION: 1. No suspicious acute abnormality account for patient's nausea [facility], , 06/27/2024 6:52 PM
[2024-06-27] MEDS: IBUPROFEN 600 MG STARTER PACK 4 TAB BTL PO STA (19:34)
[2024-06-27] MEDS: ONDANSETRON 4 MG ODT STARTER PACK 2 TAB BTL PO STA (19:34)
[2024-06-27 20:11] VITALS: BP 130/78; PULSE 72; RESP 19; TEMP 98.2
== END 2024-06-27 20:11 | disposition home or self-care (01) ==
LOC: EC 12:23
DX: R11.2 Nausea with vomiting, unspecified (principal); R42 Dizziness and giddiness; B34.9 Viral infection, unspecified; F17.290 Nicotine dependence, other tobacco product, uncomplicated; Z88.5 Allergy status to narcotic agent; Z91.030 Bee allergy status; Z91.040 Latex allergy status
CPT/HCPCS: 36415; 80053; 83735; 85025; 86140; 81001; 81025; 80306; 87636; 71046; 70450; 74176; 99284; 96374; 96375 ×2; 96361 ×2; J1200; J0780; J1885; S0119